=== PATIENT | female | born 1965 | race Caucasian/White ===

== ENCOUNTER 2020-04-04 10:44 | Inpatient (IN) | payer BC, OTHER ==
[2020-04-04] MEDS ORDERED: Labetalol HCl 100 MG/20 ML VIAL ONE (11:04)
[2020-04-04 11:29] LABS: #Eosinphils 0.2 thou/uL (0.0-0.7); #Lymphocytes 1.1 thou/uL (1.20-3.40); #Monocytes 0.5 thou/uL (0.11-0.59); #Neutrophils 7.1 thou/uL (1.40-6.50); %Basophils 0.5 % (0.0-1.0); %Eosinophils 2.1 % (0.0-10.0); %Lymphocytes 12.3 % (21.0-51.0); %Neutrophils 79.2 % (42.0-75.0); Hemoglobin 10.5 g/dL (12.0-16.0); Mean Corpuscular HGB CONC 34.2 g/dL (32.0-36.0); Mean Corpuscular Volume 84.8 fL (78.0-98.0); Mean Platelet Volume 7.4 fL (7.4-10.4); Platelet Count 246 thou/uL (130-400); RBC Distribution Width 13.4 % (11.5-14.5); Red Blood Cell (RBC) Count 3.63 mill/uL (4.20-5.40)
[2020-04-04 11:50] LABS: ALT (SGPT) 7 U/L (8-55); AST (SGOT) 13 U/L (5-34); Albumin 4.2 g/dL (3.5-5.0); Alkaline Phosphatase 83 U/L (40-110); Anion Gap 18 mmol/L (10-20); BUN (Urea Nitrogen) 35 mg/dL (9.8-20.1); Bilirubin, Total 0.5 mg/dL (0.2-1.2); Calc. Creatinine Clearance 0 mL/min (70-130); Calcium 8.7 mg/dL (7.8-10.44); Carbon Dioxide 21 mmol/L (22-29); Chloride 105 mmol/L (98-107); Globulin 2.7 g/dL (2.4-3.5); Glucose 112 mg/dL (70-105); Potassium 3.6 mmol/L (3.5-5.1); Protein, Total 6.9 g/dL (6.0-8.3); Sodium 140 mmol/L (136-145)
[2020-04-04] MEDS ORDERED: Acetaminophen 650 MG Suppository PR PRN (13:56)
[2020-04-04] MEDS ORDERED: Ondansetron PF 4 MG/2 ML Vial IVP PRN (13:56)
[2020-04-04] MEDS ORDERED: Calcium Carbonate 500 MG ChewTAB PO PRN (13:56)
[2020-04-04] MEDS ORDERED: Sodium Chloride 0.9% 1,000 ML IV SCH (14:15)
[2020-04-04 14:34] VITALS: BMI 22.1
[2020-04-04 16:05] LABS: Bilirubin Negative (Negative); Blood, Urine 1+ (Negative); Clarity Clear (Clear); Glucose, Urine (Dipstick) 50 mg/dL (Negative); Ketone, Urine Negative (Negative); Leukocyte 250 Leu/uL (Negative); Nitrite Negative (Negative); Protein, Urine (Dipstick) 300 mg/dL (Neg-Trace); RBC/HPF 0-3 HPF (0-3); Specific Gravity, Urine 1.016 (1.002-1.036); Squamous Epithelial 0-3 HPF (0-3); Urobilinogen Normal mg/dL (Less than 2)
[2020-04-04 16:06] LABS: Bacteria/HPF 1+ HPF (None Seen)
[2020-04-04] MEDS: Sodium Chloride 0.9% 1,000 ML IV SCH (17:12)
[2020-04-04] MEDS: hydrALAZINE 20 MG/ML VIAL SLOW IVP PRN (18:21)
[2020-04-04] MEDS: Ondansetron ODT 4 MG TAB PO PRN (19:17)
[2020-04-04] MEDS: Tacrolimus 1 MG CAP PO SCH (21:14)
[2020-04-05] MEDS: Sodium Chloride 0.9% 1,000 ML IV SCH (02:49)
[2020-04-05] MEDS: Acetaminophen 325 MG TAB PO PRN ×2 (05:34→13:51)
[2020-04-05] MEDS: hydrALAZINE 20 MG/ML VIAL SLOW IVP PRN ×3 (05:35→18:27)
[2020-04-05] MEDS: Labetalol HCl 100 MG/20 ML VIAL SLOW IVP PRN ×3 (06:42→23:31)
[2020-04-05 07:17] LABS: ALT (SGPT) Less than 7 U/L (8-55); AST (SGOT) 10 U/L (5-34); Albumin 3.7 g/dL (3.5-5.0); Alkaline Phosphatase 78 U/L (40-110); Anion Gap 16 mmol/L (10-20); BUN (Urea Nitrogen) 33 mg/dL (9.8-20.1); Bilirubin, Total 0.3 mg/dL (0.2-1.2); Calc. Creatinine Clearance 15 mL/min (70-130); Calcium 7.8 mg/dL (7.8-10.44); Carbon Dioxide 17 mmol/L (22-29); Chloride 111 mmol/L (98-107); Globulin 2.2 g/dL (2.4-3.5); Glucose 122 mg/dL (70-105); Potassium 3.2 mmol/L (3.5-5.1); Protein, Total 5.9 g/dL (6.0-8.3); Sodium 141 mmol/L (136-145)
[2020-04-05 08:04] LABS: Band 2 % (5-11); Eosinophils 1 % (0-10); Hemoglobin 9.8 g/dL (12.0-16.0); Lymphocytes 14 % (21-51); MDiff Complete? YES; Mean Corpuscular HGB CONC 35.1 g/dL (32.0-36.0); Mean Corpuscular Volume 85.5 fL (78.0-98.0); Mean Platelet Volume 7.6 fL (7.4-10.4); Monocytes 3 % (0-10); Myelocyte 1 % (0-0); Neutrophil 77 % (42-75); Platelet Count 238 thou/uL (130-400); Platelet Morphology Comment Appears Adequate; Polychromasia SLIGHT = 2-3 cells (100X) (0-2/hpf); RBC Distribution Width 13.6 % (11.5-14.5); Reactive Lymphocytes 1 % (0-10); Red Blood Cell (RBC) Count 3.27 mill/uL (4.20-5.40); White Blood Cell (WBC) Count 9.4 thou/uL (4.8-10.8)
[2020-04-05] MEDS: Enoxaparin Sodium 30 MG/0.3 ML SYRINGE SC SCH (08:43)
[2020-04-05] MEDS ORDERED: Potassium Chloride 20 MEQ TAB PO SCH (09:15)
[2020-04-05] MEDS ORDERED: Morphine 4 MG/ML VIAL SLOW IVP PRN (10:01)
[2020-04-05] MEDS ORDERED: Ondansetron PF 4 MG/2 ML Vial IVP SCH (10:30)
[2020-04-05] MEDS ORDERED: Morphine 4 MG/ML VIAL SLOW IVP SCH (10:30)
[2020-04-05] MEDS: Lactated Ringer's 1,000 ML IV SCH ×2 (10:35→20:20)
[2020-04-05] MEDS: Ondansetron PF 4 MG/2 ML Vial IVP SCH ×2 (13:04→17:14)
[2020-04-05] MEDS: predniSONE 5 MG TAB PO SCH (13:51)
[2020-04-05] MEDS: Tacrolimus 1 MG CAP PO SCH ×2 (13:55→20:18)
[2020-04-05] MEDS: Ondansetron ODT 4 MG TAB PO PRN (20:27)
[2020-04-05] MEDS ORDERED: Mycophenolate 250 MG CAP PO SCH (21:00)
[2020-04-06] MEDS: Ondansetron PF 4 MG/2 ML Vial IVP SCH ×5 (02:02→23:05)
[2020-04-06] MEDS: Labetalol HCl 100 MG/20 ML VIAL SLOW IVP PRN (05:04)
[2020-04-06] MEDS: Morphine 2 MG/ML VIAL SLOW IVP PRN ×2 (05:04→23:20)
[2020-04-06] MEDS: Lactated Ringer's 1,000 ML IV SCH ×2 (05:08→15:00)
[2020-04-06 06:57] LABS: ALT (SGPT) 8 U/L (8-55); AST (SGOT) 17 U/L (5-34); Albumin 3.2 g/dL (3.5-5.0); Alkaline Phosphatase 57 U/L (40-110); Anion Gap 14 mmol/L (10-20); BUN (Urea Nitrogen) 31 mg/dL (9.8-20.1); Bilirubin, Total 0.2 mg/dL (0.2-1.2); Calc. Creatinine Clearance 14 mL/min (70-130); Calcium 7.8 mg/dL (7.8-10.44); Carbon Dioxide 18 mmol/L (22-29); Chloride 112 mmol/L (98-107); Globulin 2.2 g/dL (2.4-3.5); Glucose 106 mg/dL (70-105); Potassium 4.6 mmol/L (3.5-5.1); Protein, Total 5.4 g/dL (6.0-8.3); Sodium 139 mmol/L (136-145)
[2020-04-06 07:35] LABS: #Basophils 0.1 thou/uL (0.0-0.2); #Eosinphils 0.1 thou/uL (0.0-0.7); #Lymphocytes 1.9 thou/uL (1.20-3.40); #Monocytes 0.7 thou/uL (0.11-0.59); #Neutrophils 6.9 thou/uL (1.40-6.50); %Basophils 0.7 % (0.0-1.0); %Eosinophils 0.8 % (0.0-10.0); %Lymphocytes 19.8 % (21.0-51.0); %Monocytes 7.5 % (0.0-10.0); %Neutrophils 71.3 % (42.0-75.0); Mean Corpuscular HGB CONC 32.7 g/dL (32.0-36.0); Mean Corpuscular Hemoglobin 28.3 pg (27.0-31.0); Mean Corpuscular Volume 86.6 fL (78.0-98.0); Mean Platelet Volume 7.8 fL (7.4-10.4); Platelet Count 223 thou/uL (130-400); RBC Distribution Width 14.1 % (11.5-14.5); Red Blood Cell (RBC) Count 2.81 mill/uL (4.20-5.40); White Blood Cell (WBC) Count 9.6 thou/uL (4.8-10.8)
[2020-04-06] MEDS: Enoxaparin Sodium 30 MG/0.3 ML SYRINGE SC SCH (08:14)
[2020-04-06] MEDS ORDERED: Amlodipine 5 MG TAB PO SCH (09:00)
[2020-04-06] MEDS: Tacrolimus 1 MG CAP PO SCH ×2 (10:08→21:06)
[2020-04-06] MEDS: predniSONE 5 MG TAB PO SCH (10:09)
[2020-04-06] MEDS ORDERED: Epoetin (ESRD) 20,000 UNITS/ML SC SCH (11:15)
[2020-04-06] MEDS ORDERED: Ferrous Sulfate 325 MG TAB PO SCH (12:15)
[2020-04-06] MEDS ORDERED: Mycophenolate 250 MG CAP PO SCH (12:15)
[2020-04-06] MEDS ORDERED: predniSONE 5 MG TAB PO SCH (12:15)
[2020-04-06 12:22] LABS: PTT 29.1 sec (22.9-36.1); Prothrombin Time 13.7 sec (12.0-14.7)
[2020-04-06] MEDS ORDERED: Famotidine 20 MG TAB PO SCH (12:30)
[2020-04-06] MEDS: EPOETIN ALFA-EPBX (ESRD) 4,000 UNIT/ML VIAL SC SCH (13:09)
[2020-04-06] MEDS: hydrALAZINE 20 MG/ML VIAL SLOW IVP PRN (19:50)
[2020-04-06] MEDS: Mycophenolate 250 MG CAP PO SCH (21:19)
[2020-04-06] MEDS: Acetaminophen 325 MG TAB PO PRN (21:24)
[2020-04-07] MEDS: hydrALAZINE 20 MG/ML VIAL SLOW IVP PRN ×2 (01:00→12:24)
[2020-04-07] MEDS: Acetaminophen 325 MG TAB PO PRN (01:02)
[2020-04-07] MEDS: Lactated Ringer's 1,000 ML IV SCH ×3 (02:32→23:24)
[2020-04-07] MEDS: Labetalol HCl 100 MG/20 ML VIAL SLOW IVP PRN ×3 (02:52→23:32)
[2020-04-07] MEDS ORDERED: Morphine 2 MG/ML VIAL SLOW IVP SCH (03:15)
[2020-04-07] MEDS: Ondansetron PF 4 MG/2 ML Vial IVP SCH ×4 (05:21→23:24)
[2020-04-07 05:43] LABS: #Basophils 0.1 thou/uL (0.0-0.2); #Eosinphils 0.2 thou/uL (0.0-0.7); #Lymphocytes 1.3 thou/uL (1.20-3.40); #Monocytes 0.8 thou/uL (0.11-0.59); #Neutrophils 10.2 thou/uL (1.40-6.50); %Basophils 0.5 % (0.0-1.0); %Eosinophils 1.3 % (0.0-10.0); %Lymphocytes 10.3 % (21.0-51.0); %Monocytes 6.2 % (0.0-10.0); %Neutrophils 81.8 % (42.0-75.0); Hemoglobin 8.4 g/dL (12.0-16.0); Mean Corpuscular HGB CONC 32.1 g/dL (32.0-36.0); Mean Corpuscular Hemoglobin 28.3 pg (27.0-31.0); Mean Corpuscular Volume 88.2 fL (78.0-98.0); Mean Platelet Volume 7.9 fL (7.4-10.4); Platelet Count 217 thou/uL (130-400); RBC Distribution Width 14.1 % (11.5-14.5); Red Blood Cell (RBC) Count 2.96 mill/uL (4.20-5.40); White Blood Cell (WBC) Count 12.4 thou/uL (4.8-10.8)
[2020-04-07 06:01] LABS: Anion Gap 16 mmol/L (10-20); BUN (Urea Nitrogen) 31 mg/dL (9.8-20.1); Calc. Creatinine Clearance 15 mL/min (70-130); Calcium 7.8 mg/dL (7.8-10.44); Carbon Dioxide 14 mmol/L (22-29); Chloride 110 mmol/L (98-107); Glucose 108 mg/dL (70-105); Sodium 136 mmol/L (136-145)
[2020-04-07] MEDS: Enoxaparin Sodium 30 MG/0.3 ML SYRINGE SC SCH (08:53)
[2020-04-07] MEDS: Tacrolimus 1 MG CAP PO SCH ×2 (08:55→20:36)
[2020-04-07] MEDS: predniSONE 5 MG TAB PO SCH (08:55)
[2020-04-07] MEDS: Ferrous Sulfate 325 MG TAB PO SCH (08:56)
[2020-04-07] MEDS: Calcitriol 0.25 MCG CAP PO SCH (08:56)
[2020-04-07] MEDS: Famotidine 20 MG TAB PO SCH (08:57)
[2020-04-07] MEDS: Mycophenolate 250 MG CAP PO SCH ×2 (08:57→20:36)
[2020-04-07] MEDS ORDERED: Amlodipine 10 MG TAB PO SCH (09:00)
[2020-04-07] MEDS ORDERED: Labetalol 100 MG TAB PO SCH (14:15)
[2020-04-07] MEDS ORDERED: hydrALAZINE 25 MG TAB PO SCH ×2 (15:00)
[2020-04-07] MEDS ORDERED: hydrALAZINE 25 MG TAB PO PRN (16:56)
[2020-04-07] MEDS ORDERED: Labetalol 100 MG TAB PO PRN (16:56)
[2020-04-07] MEDS: Labetalol 100 MG TAB PO SCH (20:36)
[2020-04-07] MEDS ORDERED: Metoprolol Tartrate 25 MG TAB PO SCH (21:00)
[2020-04-08] MEDS: Ondansetron PF 4 MG/2 ML Vial IVP SCH ×3 (05:19→17:06)
[2020-04-08] MEDS: Acetaminophen 325 MG TAB PO PRN (05:31)
[2020-04-08 08:07] LABS: #Eosinphils 0.1 thou/uL (0.0-0.7); #Lymphocytes 1.3 thou/uL (1.20-3.40); #Monocytes 0.8 thou/uL (0.11-0.59); #Neutrophils 7.2 thou/uL (1.40-6.50); %Basophils 0.4 % (0.0-1.0); %Eosinophils 0.7 % (0.0-10.0); %Lymphocytes 14.1 % (21.0-51.0); %Monocytes 8.2 % (0.0-10.0); %Neutrophils 76.6 % (42.0-75.0); Hemoglobin 8.1 g/dL (12.0-16.0); Mean Corpuscular HGB CONC 33.6 g/dL (32.0-36.0); Mean Corpuscular Hemoglobin 29.6 pg (27.0-31.0); Mean Platelet Volume 7.5 fL (7.4-10.4); Platelet Count 223 thou/uL (130-400); RBC Distribution Width 13.9 % (11.5-14.5); Red Blood Cell (RBC) Count 2.74 mill/uL (4.20-5.40); White Blood Cell (WBC) Count 9.4 thou/uL (4.8-10.8)
[2020-04-08 08:31] LABS: Anion Gap 14 mmol/L (10-20); BUN (Urea Nitrogen) 33 mg/dL (9.8-20.1); Calc. Creatinine Clearance 14 mL/min (70-130); Calcium 8.1 mg/dL (7.8-10.44); Carbon Dioxide 19 mmol/L (22-29); Chloride 108 mmol/L (98-107); Glucose 99 mg/dL (70-105); Potassium 3.7 mmol/L (3.5-5.1); Sodium 137 mmol/L (136-145)
[2020-04-08] MEDS: Lactated Ringer's 1,000 ML IV SCH ×2 (08:46→10:09)
[2020-04-08] MEDS: Calcitriol 0.25 MCG CAP PO SCH (10:00)
[2020-04-08] MEDS: Tacrolimus 1 MG CAP PO SCH ×2 (10:00→20:22)
[2020-04-08] MEDS: Enoxaparin Sodium 30 MG/0.3 ML SYRINGE SC SCH (10:00)
[2020-04-08] MEDS: NIFEdipine XL 60 MG TAB PO SCH (10:00)
[2020-04-08] MEDS: hydrALAZINE 25 MG TAB PO SCH ×3 (10:00→20:22)
[2020-04-08] MEDS: Mycophenolate 250 MG CAP PO SCH ×2 (10:00→20:22)
[2020-04-08] MEDS: Labetalol 100 MG TAB PO SCH ×4 (10:00→21:00)
[2020-04-08] MEDS: Famotidine 20 MG TAB PO SCH (10:00)
[2020-04-08] MEDS: Ferrous Sulfate 325 MG TAB PO SCH (10:03)
[2020-04-08] MEDS: predniSONE 5 MG TAB PO SCH (10:03)
[2020-04-08] MEDS ORDERED: Furosemide 40 MG/4 ML VIAL SLOW IVP SCH (16:30)
[2020-04-08] MEDS: cloNIDine 0.1mg/24 Hour PATCH TD SCH (17:59)
[2020-04-09] MEDS: Ondansetron PF 4 MG/2 ML Vial IVP SCH ×5 (00:26→18:34)
[2020-04-09 07:23] LABS: #Lymphocytes 1.3 thou/uL (1.20-3.40); #Monocytes 0.8 thou/uL (0.11-0.59); #Neutrophils 7.3 thou/uL (1.40-6.50); %Basophils 0.1 % (0.0-1.0); %Eosinophils 0.4 % (0.0-10.0); %Lymphocytes 14.1 % (21.0-51.0); %Monocytes 7.9 % (0.0-10.0); %Neutrophils 77.6 % (42.0-75.0); Hemoglobin 8.7 g/dL (12.0-16.0); Mean Corpuscular HGB CONC 32.6 g/dL (32.0-36.0); Mean Corpuscular Hemoglobin 28.7 pg (27.0-31.0); Platelet Count 276 thou/uL (130-400); RBC Distribution Width 14.1 % (11.5-14.5); Red Blood Cell (RBC) Count 3.05 mill/uL (4.20-5.40); White Blood Cell (WBC) Count 9.5 thou/uL (4.8-10.8)
[2020-04-09 07:44] LABS: Anion Gap 15 mmol/L (10-20); BUN (Urea Nitrogen) 43 mg/dL (9.8-20.1); Calc. Creatinine Clearance 13 mL/min (70-130); Calcium 8.2 mg/dL (7.8-10.44); Carbon Dioxide 22 mmol/L (22-29); Chloride 106 mmol/L (98-107); Glucose 99 mg/dL (70-105); Potassium 4.2 mmol/L (3.5-5.1); Sodium 139 mmol/L (136-145)
[2020-04-09] MEDS: hydrALAZINE 25 MG TAB PO SCH ×4 (08:06→20:36)
[2020-04-09] MEDS ORDERED: Sodium Chloride 0.65% Nasal 44 ML BOT EA NARE PRN (08:29)
[2020-04-09] MEDS ORDERED: HYDROcodone/Acetaminophen 5/325 mg Tablet PO PRN (08:29)
[2020-04-09] MEDS ORDERED: Benzonatate 100 MG CAP PO PRN (08:29)
[2020-04-09] MEDS ORDERED: Cepastat Lozenges 1 LOZ PO PRN (08:29)
[2020-04-09] MEDS ORDERED: Loratadine 10 MG TAB PO PRN (08:29)
[2020-04-09] MEDS ORDERED: GUAIFENESIN SF SOLN 200 MG/10 ML UDCUP PO PRN (08:29)
[2020-04-09] MEDS ORDERED: Loperamide HCl 2 MG CAP PO PRN (08:29)
[2020-04-09] MEDS: Famotidine 20 MG TAB PO SCH (10:17)
[2020-04-09] MEDS: predniSONE 5 MG TAB PO SCH (10:17)
[2020-04-09] MEDS: Calcitriol 0.25 MCG CAP PO SCH (10:18)
[2020-04-09] MEDS: Ferrous Sulfate 325 MG TAB PO SCH (10:18)
[2020-04-09] MEDS: Labetalol 100 MG TAB PO SCH ×2 (10:19→20:37)
[2020-04-09] MEDS: NIFEdipine XL 60 MG TAB PO SCH (10:20)
[2020-04-09] MEDS: Mycophenolate 250 MG CAP PO SCH ×2 (10:20→20:36)
[2020-04-09] MEDS: Tacrolimus 1 MG CAP PO SCH ×2 (10:20→20:38)
[2020-04-09] MEDS: Enoxaparin Sodium 30 MG/0.3 ML SYRINGE SC SCH (10:21)
[2020-04-09 11:25] LABS: PTT 24.7 sec (22.9-36.1)
[2020-04-09 11:26] LABS: Prothrombin Time 13.5 sec (12.0-14.7)
[2020-04-10] MEDS: Ondansetron PF 4 MG/2 ML Vial IVP SCH ×4 (00:55→18:15)
[2020-04-10 05:56] LABS: #Eosinphils 0.1 thou/uL (0.0-0.7); #Lymphocytes 1.2 thou/uL (1.20-3.40); #Monocytes 0.8 thou/uL (0.11-0.59); #Neutrophils 7.1 thou/uL (1.40-6.50); %Basophils 0.1 % (0.0-1.0); %Eosinophils 0.6 % (0.0-10.0); %Lymphocytes 13.1 % (21.0-51.0); %Monocytes 8.5 % (0.0-10.0); %Neutrophils 77.8 % (42.0-75.0); Hemoglobin 8.1 g/dL (12.0-16.0); Mean Corpuscular HGB CONC 32.5 g/dL (32.0-36.0); Mean Corpuscular Hemoglobin 28.6 pg (27.0-31.0); Mean Corpuscular Volume 88.1 fL (78.0-98.0); Mean Platelet Volume 7.5 fL (7.4-10.4); Platelet Count 304 thou/uL (130-400); RBC Distribution Width 14.1 % (11.5-14.5); Red Blood Cell (RBC) Count 2.84 mill/uL (4.20-5.40); White Blood Cell (WBC) Count 9.1 thou/uL (4.8-10.8)
[2020-04-10 06:13] LABS: ALT (SGPT) 11 U/L (8-55); AST (SGOT) 10 U/L (5-34); Albumin 3.1 g/dL (3.5-5.0); Alkaline Phosphatase 66 U/L (40-110); Anion Gap 15 mmol/L (10-20); BUN (Urea Nitrogen) 49 mg/dL (9.8-20.1); Bilirubin, Total 0.2 mg/dL (0.2-1.2); Calc. Creatinine Clearance 12 mL/min (70-130); Calcium 7.9 mg/dL (7.8-10.44); Carbon Dioxide 23 mmol/L (22-29); Chloride 106 mmol/L (98-107); Glucose 124 mg/dL (70-105); Protein, Total 5.1 g/dL (6.0-8.3); Sodium 140 mmol/L (136-145)
[2020-04-10] MEDS: Ferrous Sulfate 325 MG TAB PO SCH (08:24)
[2020-04-10] MEDS: predniSONE 5 MG TAB PO SCH (08:25)
[2020-04-10] MEDS: Tacrolimus 1 MG CAP PO SCH ×2 (10:00→20:19)
[2020-04-10] MEDS: NIFEdipine XL 60 MG TAB PO SCH (10:02)
[2020-04-10] MEDS: Mycophenolate 250 MG CAP PO SCH ×2 (10:03→20:18)
[2020-04-10] MEDS: hydrALAZINE 25 MG TAB PO SCH ×3 (10:04→20:14)
[2020-04-10] MEDS: Labetalol 100 MG TAB PO SCH ×2 (10:04→20:17)
[2020-04-10] MEDS: Famotidine 20 MG TAB PO SCH (10:04)
[2020-04-10] MEDS: Enoxaparin Sodium 30 MG/0.3 ML SYRINGE SC SCH (10:05)
[2020-04-10] MEDS: Albumin 25% 25 GM/100 ML BOT IVPB SCH ×3 (10:11→22:20)
[2020-04-10] MEDS: Calcitriol 0.25 MCG CAP PO SCH (10:11)
[2020-04-10] MEDS ORDERED: Lactated Ringer's 1,000 ML IV SCH (16:15)
[2020-04-10 20:08] LABS: Bacteria/HPF None Seen HPF (None Seen); Bilirubin Negative (Negative); Blood, Urine Negative (Negative); Clarity Clear (Clear); Glucose, Urine (Dipstick) 50 mg/dL (Negative); Ketone, Urine Negative (Negative); Leukocyte 250 Leu/uL (Negative); Nitrite Negative (Negative); Protein, Urine (Dipstick) 100 mg/dL (Neg-Trace); RBC/HPF 0-3 HPF (0-3); Specific Gravity, Urine 1.012 (1.002-1.036); Squamous Epithelial 0-3 HPF (0-3); Urobilinogen Normal mg/dL (Less than 2); pH, Urine 6.5 (5.0-9.0)
[2020-04-10] MEDS ORDERED: Furosemide 40 MG/4 ML VIAL SLOW IVP SCH (20:15)
[2020-04-10 20:40] LABS: Creatinine, Urine 54.18 mg/dL (47-110)
[2020-04-11] MEDS: Ondansetron PF 4 MG/2 ML Vial IVP SCH ×5 (00:50→23:38)
[2020-04-11] MEDS: Albumin 25% 25 GM/100 ML BOT IVPB SCH ×4 (05:00→23:38)
[2020-04-11 07:25] LABS: Anion Gap 16 mmol/L (10-20); BUN (Urea Nitrogen) 53 mg/dL (9.8-20.1); Calc. Creatinine Clearance 13 mL/min (70-130); Calcium 8.7 mg/dL (7.8-10.44); Carbon Dioxide 24 mmol/L (22-29); Chloride 104 mmol/L (98-107); Glucose 106 mg/dL (70-105); Sodium 140 mmol/L (136-145)
[2020-04-11 07:52] LABS: #Lymphocytes 1.2 thou/uL (1.20-3.40); #Monocytes 0.6 thou/uL (0.11-0.59); #Neutrophils 6.5 thou/uL (1.40-6.50); %Basophils 0.1 % (0.0-1.0); %Eosinophils 0.3 % (0.0-10.0); %Lymphocytes 14.5 % (21.0-51.0); %Monocytes 7.5 % (0.0-10.0); %Neutrophils 77.5 % (42.0-75.0); Mean Corpuscular HGB CONC 32.3 g/dL (32.0-36.0); Mean Corpuscular Hemoglobin 28.5 pg (27.0-31.0); Mean Corpuscular Volume 88.3 fL (78.0-98.0); Mean Platelet Volume 7.7 fL (7.4-10.4); Platelet Count 322 thou/uL (130-400); Red Blood Cell (RBC) Count 2.79 mill/uL (4.20-5.40); White Blood Cell (WBC) Count 8.4 thou/uL (4.8-10.8)
[2020-04-11] MEDS: Mycophenolate 250 MG CAP PO SCH ×2 (07:54→19:52)
[2020-04-11] MEDS: Ferrous Sulfate 325 MG TAB PO SCH (07:55)
[2020-04-11] MEDS: Labetalol 100 MG TAB PO SCH ×2 (07:55→19:59)
[2020-04-11] MEDS: predniSONE 5 MG TAB PO SCH (07:55)
[2020-04-11] MEDS: Tacrolimus 1 MG CAP PO SCH ×2 (07:55→21:57)
[2020-04-11] MEDS: NIFEdipine XL 60 MG TAB PO SCH (07:56)
[2020-04-11] MEDS: hydrALAZINE 25 MG TAB PO SCH ×3 (07:56→19:51)
[2020-04-11] MEDS: Enoxaparin Sodium 30 MG/0.3 ML SYRINGE SC SCH (07:57)
[2020-04-11] MEDS: Calcitriol 0.25 MCG CAP PO SCH (07:57)
[2020-04-11] MEDS: Famotidine 20 MG TAB PO SCH (08:01)
[2020-04-12] MEDS: Ondansetron PF 4 MG/2 ML Vial IVP SCH ×4 (05:35→23:52)
[2020-04-12] MEDS: Albumin 25% 25 GM/100 ML BOT IVPB SCH (05:36)
[2020-04-12 06:49] LABS: #Lymphocytes 1.8 thou/uL (1.20-3.40); #Monocytes 0.6 thou/uL (0.11-0.59); #Neutrophils 5.7 thou/uL (1.40-6.50); %Basophils 0.6 % (0.0-1.0); %Eosinophils 0.6 % (0.0-10.0); %Lymphocytes 21.4 % (21.0-51.0); %Monocytes 7.9 % (0.0-10.0); %Neutrophils 69.6 % (42.0-75.0); Hemoglobin 7.8 g/dL (12.0-16.0); Mean Corpuscular HGB CONC 32.9 g/dL (32.0-36.0); Mean Corpuscular Hemoglobin 29.4 pg (27.0-31.0); Mean Corpuscular Volume 89.3 fL (78.0-98.0); Mean Platelet Volume 7.4 fL (7.4-10.4); Platelet Count 324 thou/uL (130-400); RBC Distribution Width 14.1 % (11.5-14.5); Red Blood Cell (RBC) Count 2.66 mill/uL (4.20-5.40); White Blood Cell (WBC) Count 8.2 thou/uL (4.8-10.8)
[2020-04-12 07:18] LABS: Anion Gap 20 mmol/L (10-20); BUN (Urea Nitrogen) 60 mg/dL (9.8-20.1); Calc. Creatinine Clearance 11 mL/min (70-130); Calcium 8.6 mg/dL (7.8-10.44); Carbon Dioxide 20 mmol/L (22-29); Chloride 104 mmol/L (98-107); Glucose 92 mg/dL (70-105); Sodium 140 mmol/L (136-145)
[2020-04-12] MEDS: Mycophenolate 250 MG CAP PO SCH ×2 (08:28→20:27)
[2020-04-12] MEDS: Labetalol 100 MG TAB PO SCH ×2 (08:29→20:27)
[2020-04-12] MEDS: Tacrolimus 1 MG CAP PO SCH ×2 (08:29→20:28)
[2020-04-12] MEDS: Famotidine 20 MG TAB PO SCH (08:29)
[2020-04-12] MEDS: Ferrous Sulfate 325 MG TAB PO SCH (08:29)
[2020-04-12] MEDS: NIFEdipine XL 60 MG TAB PO SCH (08:29)
[2020-04-12] MEDS: predniSONE 5 MG TAB PO SCH (08:30)
[2020-04-12] MEDS: hydrALAZINE 25 MG TAB PO SCH ×3 (08:30→20:28)
[2020-04-12] MEDS: Calcitriol 0.25 MCG CAP PO SCH (08:30)
[2020-04-12] MEDS: Enoxaparin Sodium 30 MG/0.3 ML SYRINGE SC SCH (08:31)
[2020-04-12] MEDS: Sodium Chloride 0.9% 1,000 ML IV SCH ×2 (10:50→23:52)
[2020-04-12 18:03] LABS: SARS-CoV-2 NAA Rapid Test Not Detected (NotDetected)
[2020-04-12] MEDS: Senokot S 8.6-50 MG TAB PO PRN (20:27)
[2020-04-12] MEDS: Bisacodyl 5 MG TAB PO PRN (20:27)
[2020-04-13] MEDS: Ondansetron PF 4 MG/2 ML Vial IVP SCH ×4 (05:54→23:30)
[2020-04-13] MEDS: Bisacodyl 5 MG TAB PO PRN (05:54)
[2020-04-13 05:58] LABS: #Lymphocytes 1.3 thou/uL (1.20-3.40); #Monocytes 0.9 thou/uL (0.11-0.59); #Neutrophils 7.3 thou/uL (1.40-6.50); %Basophils 0.1 % (0.0-1.0); %Eosinophils 0.3 % (0.0-10.0); %Lymphocytes 13.8 % (21.0-51.0); %Monocytes 9.2 % (0.0-10.0); %Neutrophils 76.6 % (42.0-75.0); Mean Corpuscular HGB CONC 31.9 g/dL (32.0-36.0); Mean Corpuscular Hemoglobin 28.5 pg (27.0-31.0); Mean Corpuscular Volume 89.2 fL (78.0-98.0); Mean Platelet Volume 7.3 fL (7.4-10.4); Platelet Count 339 thou/uL (130-400); RBC Distribution Width 14.3 % (11.5-14.5); Red Blood Cell (RBC) Count 2.81 mill/uL (4.20-5.40); White Blood Cell (WBC) Count 9.6 thou/uL (4.8-10.8)
[2020-04-13 06:13] LABS: Anion Gap 20 mmol/L (10-20); BUN (Urea Nitrogen) 63 mg/dL (9.8-20.1); Calc. Creatinine Clearance 12 mL/min (70-130); Calcium 8.6 mg/dL (7.8-10.44); Carbon Dioxide 17 mmol/L (22-29); Chloride 107 mmol/L (98-107); Glucose 99 mg/dL (70-105); Potassium 4.1 mmol/L (3.5-5.1); Sodium 140 mmol/L (136-145)
[2020-04-13] MEDS ORDERED: Magnesium Citrate 300 ML BOT PO SCH (08:15)
[2020-04-13] MEDS ORDERED: Bisacodyl 10 MG SUPP PR SCH (08:15)
[2020-04-13] MEDS: NIFEdipine XL 60 MG TAB PO SCH (08:40)
[2020-04-13] MEDS: Tacrolimus 1 MG CAP PO SCH ×2 (08:41→21:03)
[2020-04-13] MEDS: Famotidine 20 MG TAB PO SCH (08:41)
[2020-04-13] MEDS: Enoxaparin Sodium 30 MG/0.3 ML SYRINGE SC SCH (08:42)
[2020-04-13] MEDS: Ferrous Sulfate 325 MG TAB PO SCH (08:42)
[2020-04-13] MEDS: hydrALAZINE 25 MG TAB PO SCH ×3 (08:42→21:00)
[2020-04-13] MEDS: Calcitriol 0.25 MCG CAP PO SCH (08:42)
[2020-04-13] MEDS: predniSONE 5 MG TAB PO SCH (08:42)
[2020-04-13] MEDS: Labetalol 100 MG TAB PO SCH ×2 (08:53→21:00)
[2020-04-13] MEDS: Mycophenolate 250 MG CAP PO SCH ×2 (08:53→21:00)
[2020-04-13] MEDS: Sodium Chloride 0.9% 1,000 ML IV SCH (12:23)
[2020-04-13] MEDS: EPOETIN ALFA-EPBX (ESRD) 4,000 UNIT/ML VIAL SC SCH (14:02)
[2020-04-14] MEDS: Sodium Chloride 0.9% 1,000 ML IV SCH ×3 (01:38→13:48)
[2020-04-14 05:33] LABS: #Lymphocytes 0.7 thou/uL (1.20-3.40); #Monocytes 0.4 thou/uL (0.11-0.59); #Neutrophils 6.4 thou/uL (1.40-6.50); %Eosinophils 0.3 % (0.0-10.0); %Lymphocytes 9.6 % (21.0-51.0); %Monocytes 5.6 % (0.0-10.0); %Neutrophils 84.4 % (42.0-75.0); Hemoglobin 7.8 g/dL (12.0-16.0); Mean Corpuscular HGB CONC 32.5 g/dL (32.0-36.0); Mean Corpuscular Hemoglobin 28.9 pg (27.0-31.0); Mean Corpuscular Volume 89.1 fL (78.0-98.0); Mean Platelet Volume 7.3 fL (7.4-10.4); Platelet Count 330 thou/uL (130-400); RBC Distribution Width 14.1 % (11.5-14.5); Red Blood Cell (RBC) Count 2.69 mill/uL (4.20-5.40); White Blood Cell (WBC) Count 7.6 thou/uL (4.8-10.8)
[2020-04-14 05:57] LABS: Anion Gap 19 mmol/L (10-20); BUN (Urea Nitrogen) 63 mg/dL (9.8-20.1); Calc. Creatinine Clearance 13 mL/min (70-130); Calcium 8.3 mg/dL (7.8-10.44); Carbon Dioxide 17 mmol/L (22-29); Chloride 108 mmol/L (98-107); Glucose 108 mg/dL (70-105); Potassium 4.4 mmol/L (3.5-5.1); Sodium 140 mmol/L (136-145)
[2020-04-14] MEDS: Ondansetron PF 4 MG/2 ML Vial IVP SCH ×3 (06:07→17:21)
[2020-04-14] MEDS: Mycophenolate 250 MG CAP PO SCH ×2 (08:23→21:50)
[2020-04-14] MEDS: predniSONE 5 MG TAB PO SCH (08:24)
[2020-04-14] MEDS: Ferrous Sulfate 325 MG TAB PO SCH (08:24)
[2020-04-14] MEDS: Labetalol 100 MG TAB PO SCH ×2 (08:24→21:51)
[2020-04-14] MEDS: NIFEdipine XL 60 MG TAB PO SCH (08:24)
[2020-04-14] MEDS: Tacrolimus 1 MG CAP PO SCH ×2 (08:24→21:49)
[2020-04-14] MEDS: Calcitriol 0.25 MCG CAP PO SCH (08:25)
[2020-04-14] MEDS: Famotidine 20 MG TAB PO SCH (08:25)
[2020-04-14] MEDS: hydrALAZINE 25 MG TAB PO SCH ×3 (08:25→21:52)
[2020-04-14] MEDS: Enoxaparin Sodium 30 MG/0.3 ML SYRINGE SC SCH (08:29)
[2020-04-14] MEDS ORDERED: cloNIDine 0.1mg/24 Hour PATCH TD SCH (09:00)
[2020-04-14] MEDS: Sodium Bicarbonate Tab 325 MG TAB PO SCH ×2 (13:47→21:49)
[2020-04-15] MEDS: Ondansetron PF 4 MG/2 ML Vial IVP SCH ×5 (00:42→23:58)
[2020-04-15] MEDS: Sodium Chloride 0.9% 1,000 ML IV SCH ×3 (04:34→16:35)
[2020-04-15 06:50] LABS: #Eosinphils 0.1 thou/uL (0.0-0.7); #Lymphocytes 1.4 thou/uL (1.20-3.40); #Neutrophils 7.6 thou/uL (1.40-6.50); %Eosinophils 0.6 % (0.0-10.0); %Lymphocytes 13.9 % (21.0-51.0); %Monocytes 9.5 % (0.0-10.0); %Neutrophils 75.9 % (42.0-75.0); Hemoglobin 8.3 g/dL (12.0-16.0); Mean Corpuscular HGB CONC 32.6 g/dL (32.0-36.0); Mean Corpuscular Hemoglobin 29.1 pg (27.0-31.0); Mean Corpuscular Volume 89.5 fL (78.0-98.0); Mean Platelet Volume 7.2 fL (7.4-10.4); Platelet Count 356 thou/uL (130-400); RBC Distribution Width 14.4 % (11.5-14.5); Red Blood Cell (RBC) Count 2.84 mill/uL (4.20-5.40)
[2020-04-15 07:10] LABS: Anion Gap 17 mmol/L (10-20); BUN (Urea Nitrogen) 61 mg/dL (9.8-20.1); Calc. Creatinine Clearance 13 mL/min (70-130); Calcium 8.4 mg/dL (7.8-10.44); Carbon Dioxide 16 mmol/L (22-29); Chloride 112 mmol/L (98-107); Glucose 105 mg/dL (70-105); Potassium 3.9 mmol/L (3.5-5.1); Sodium 141 mmol/L (136-145)
[2020-04-15] MEDS: Famotidine 20 MG TAB PO SCH (08:07)
[2020-04-15] MEDS: Sodium Bicarbonate Tab 325 MG TAB PO SCH ×3 (08:07→20:56)
[2020-04-15] MEDS: NIFEdipine XL 60 MG TAB PO SCH (08:07)
[2020-04-15] MEDS: Tacrolimus 1 MG CAP PO SCH ×2 (08:08→20:54)
[2020-04-15] MEDS: predniSONE 5 MG TAB PO SCH (08:08)
[2020-04-15] MEDS: Labetalol 100 MG TAB PO SCH ×2 (08:08→20:54)
[2020-04-15] MEDS: Mycophenolate 250 MG CAP PO SCH ×2 (08:08→20:54)
[2020-04-15] MEDS: Calcitriol 0.25 MCG CAP PO SCH (08:09)
[2020-04-15] MEDS: Enoxaparin Sodium 30 MG/0.3 ML SYRINGE SC SCH (08:09)
[2020-04-15] MEDS: hydrALAZINE 25 MG TAB PO SCH ×3 (08:09→20:55)
[2020-04-15] MEDS: Ferrous Sulfate 325 MG TAB PO SCH (08:09)
[2020-04-15] MEDS: Benzonatate 100 MG CAP PO SCH ×2 (15:22→20:55)
[2020-04-15] MEDS: cloNIDine 0.1mg/24 Hour PATCH TD SCH (16:49)
[2020-04-16] MEDS: Ondansetron PF 4 MG/2 ML Vial IVP SCH ×3 (05:13→19:16)
[2020-04-16] MEDS: Sodium Chloride 0.9% 1,000 ML IV SCH ×2 (05:50→19:59)
[2020-04-16] MEDS: Ferrous Sulfate 325 MG TAB PO SCH (08:28)
[2020-04-16] MEDS: predniSONE 5 MG TAB PO SCH (08:28)
[2020-04-16] MEDS: Famotidine 20 MG TAB PO SCH (08:29)
[2020-04-16] MEDS: Enoxaparin Sodium 30 MG/0.3 ML SYRINGE SC SCH (08:29)
[2020-04-16] MEDS: Calcitriol 0.25 MCG CAP PO SCH (08:29)
[2020-04-16] MEDS: Mycophenolate 250 MG CAP PO SCH ×2 (08:30→20:20)
[2020-04-16] MEDS: Labetalol 100 MG TAB PO SCH ×2 (08:30→20:20)
[2020-04-16] MEDS: hydrALAZINE 25 MG TAB PO SCH ×3 (08:30→20:21)
[2020-04-16] MEDS: Benzonatate 100 MG CAP PO SCH ×3 (08:30→20:21)
[2020-04-16] MEDS: Sodium Bicarbonate Tab 325 MG TAB PO SCH ×3 (08:31→20:21)
[2020-04-16] MEDS: NIFEdipine XL 60 MG TAB PO SCH (08:31)
[2020-04-16] MEDS: Tacrolimus 1 MG CAP PO SCH ×2 (09:44→20:20)
[2020-04-16 10:03] LABS: #Basophils 0.1 thou/uL (0.0-0.2); #Eosinphils 0.1 thou/uL (0.0-0.7); #Lymphocytes 2.1 thou/uL (1.20-3.40); #Monocytes 0.8 thou/uL (0.11-0.59); #Neutrophils 8.5 thou/uL (1.40-6.50); %Basophils 0.6 % (0.0-1.0); %Eosinophils 0.9 % (0.0-10.0); %Lymphocytes 17.7 % (21.0-51.0); %Monocytes 7.1 % (0.0-10.0); %Neutrophils 73.6 % (42.0-75.0); Hemoglobin 9.2 g/dL (12.0-16.0); Mean Corpuscular HGB CONC 32.5 g/dL (32.0-36.0); Mean Corpuscular Hemoglobin 29.4 pg (27.0-31.0); Mean Corpuscular Volume 90.6 fL (78.0-98.0); Mean Platelet Volume 6.8 fL (7.4-10.4); Platelet Count 404 thou/uL (130-400); RBC Distribution Width 14.6 % (11.5-14.5); Red Blood Cell (RBC) Count 3.14 mill/uL (4.20-5.40); White Blood Cell (WBC) Count 11.6 thou/uL (4.8-10.8)
[2020-04-16 10:20] LABS: Anion Gap 18 mmol/L (10-20); BUN (Urea Nitrogen) 56 mg/dL (9.8-20.1); Calc. Creatinine Clearance 15 mL/min (70-130); Calcium 8.6 mg/dL (7.8-10.44); Carbon Dioxide 15 mmol/L (22-29); Chloride 112 mmol/L (98-107); Glucose 134 mg/dL (70-105); INR-International Normal Ratio 1.1; PTT 25.8 sec (22.9-36.1); Potassium 3.5 mmol/L (3.5-5.1); Prothrombin Time 14.5 sec (12.0-14.7); Sodium 141 mmol/L (136-145)
[2020-04-16 15:49] LABS: RBC Count-Automated (BF) 10 /cu.mm; WBC/Nucleated-Auto (BF) 31 uL
[2020-04-16 16:02] LABS: BF Color Yellow; Body Fluid Source Pleural Fluid; Clarity Clear (Clear); Tube # EDTA
[2020-04-16 16:06] LABS: Pleural Fluid, Amylase Less than 30 U/L (Not Available); Pleural Fluid, Glucose 120 mg/dL; Pleural Fluid, LDH 110 U/L (Not Available); Pleural Fluid, Protein 1.9 g/dL
[2020-04-16 16:11] LABS: BF Segmented Neutrophils 8 %; Cell Count Non Hematic 42 %; Lymphocytes 50 %
[2020-04-17] MEDS: Ondansetron PF 4 MG/2 ML Vial IVP SCH ×5 (00:37→23:25)
[2020-04-17] MEDS: Senokot S 8.6-50 MG TAB PO PRN ×2 (06:04→20:55)
[2020-04-17 06:06] LABS: #Eosinphils 0.1 thou/uL (0.0-0.7); #Lymphocytes 1.4 thou/uL (1.20-3.40); #Neutrophils 7.3 thou/uL (1.40-6.50); %Basophils 0.5 % (0.0-1.0); %Eosinophils 0.6 % (0.0-10.0); %Lymphocytes 14.3 % (21.0-51.0); %Monocytes 10.1 % (0.0-10.0); %Neutrophils 74.5 % (42.0-75.0); Hemoglobin 8.5 g/dL (12.0-16.0); Mean Corpuscular HGB CONC 31.9 g/dL (32.0-36.0); Mean Corpuscular Hemoglobin 28.5 pg (27.0-31.0); Mean Corpuscular Volume 89.2 fL (78.0-98.0); Mean Platelet Volume 6.7 fL (7.4-10.4); Platelet Count 352 thou/uL (130-400); RBC Distribution Width 14.5 % (11.5-14.5); White Blood Cell (WBC) Count 9.7 thou/uL (4.8-10.8)
[2020-04-17 06:24] LABS: Anion Gap 16 mmol/L (10-20); BUN (Urea Nitrogen) 53 mg/dL (9.8-20.1); Calc. Creatinine Clearance 16 mL/min (70-130); Calcium 8.3 mg/dL (7.8-10.44); Carbon Dioxide 17 mmol/L (22-29); Chloride 112 mmol/L (98-107); Glucose 98 mg/dL (70-105); Potassium 3.9 mmol/L (3.5-5.1); Sodium 141 mmol/L (136-145)
[2020-04-17] MEDS: NIFEdipine XL 60 MG TAB PO SCH (08:59)
[2020-04-17] MEDS: Sodium Bicarbonate Tab 325 MG TAB PO SCH ×3 (09:00→20:54)
[2020-04-17] MEDS: Famotidine 20 MG TAB PO SCH (09:00)
[2020-04-17] MEDS: predniSONE 5 MG TAB PO SCH (09:01)
[2020-04-17] MEDS: hydrALAZINE 25 MG TAB PO SCH ×3 (09:02→20:54)
[2020-04-17] MEDS: Ferrous Sulfate 325 MG TAB PO SCH (09:02)
[2020-04-17] MEDS: Calcitriol 0.25 MCG CAP PO SCH (09:02)
[2020-04-17] MEDS: Benzonatate 100 MG CAP PO SCH ×3 (09:02→20:55)
[2020-04-17] MEDS: Enoxaparin Sodium 30 MG/0.3 ML SYRINGE SC SCH (09:03)
[2020-04-17] MEDS: Tacrolimus 1 MG CAP PO SCH ×2 (09:07→20:55)
[2020-04-17] MEDS: Sodium Chloride 0.9% 1,000 ML IV SCH ×2 (09:09→18:09)
[2020-04-17] MEDS: Labetalol 100 MG TAB PO SCH ×2 (09:50→21:02)
[2020-04-17] MEDS: Mycophenolate 250 MG CAP PO SCH ×2 (09:50→20:54)
[2020-04-17] MEDS: Zolpidem Tartrate 5 MG TAB PO PRN (20:54)
[2020-04-18] MEDS: Ondansetron PF 4 MG/2 ML Vial IVP SCH ×3 (05:43→18:06)
[2020-04-18] MEDS: Sodium Chloride 0.9% 1,000 ML IV SCH ×2 (05:45→16:07)
[2020-04-18 05:52] LABS: #Lymphocytes 1.6 thou/uL (1.20-3.40); #Monocytes 0.9 thou/uL (0.11-0.59); #Neutrophils 6.9 thou/uL (1.40-6.50); %Eosinophils 0.4 % (0.0-10.0); %Lymphocytes 16.5 % (21.0-51.0); %Monocytes 9.5 % (0.0-10.0); %Neutrophils 73.6 % (42.0-75.0); Mean Corpuscular HGB CONC 30.9 g/dL (32.0-36.0); Mean Corpuscular Hemoglobin 27.6 pg (27.0-31.0); Mean Corpuscular Volume 89.3 fL (78.0-98.0); Mean Platelet Volume 6.8 fL (7.4-10.4); Platelet Count 340 thou/uL (130-400); RBC Distribution Width 14.6 % (11.5-14.5); Red Blood Cell (RBC) Count 2.92 mill/uL (4.20-5.40); White Blood Cell (WBC) Count 9.4 thou/uL (4.8-10.8)
[2020-04-18 06:15] LABS: Anion Gap 13 mmol/L (10-20); BUN (Urea Nitrogen) 44 mg/dL (9.8-20.1); Calc. Creatinine Clearance 17 mL/min (70-130); Calcium 7.9 mg/dL (7.8-10.44); Carbon Dioxide 18 mmol/L (22-29); Chloride 112 mmol/L (98-107); Glucose 91 mg/dL (70-105); Potassium 4.2 mmol/L (3.5-5.1); Sodium 139 mmol/L (136-145)
[2020-04-18] MEDS: Famotidine 20 MG TAB PO SCH (08:08)
[2020-04-18] MEDS: NIFEdipine XL 60 MG TAB PO SCH (08:08)
[2020-04-18] MEDS: Benzonatate 100 MG CAP PO SCH ×3 (08:09→21:16)
[2020-04-18] MEDS: hydrALAZINE 25 MG TAB PO SCH ×3 (08:09→21:16)
[2020-04-18] MEDS: Sodium Bicarbonate Tab 325 MG TAB PO SCH ×3 (08:09→21:15)
[2020-04-18] MEDS: Ferrous Sulfate 325 MG TAB PO SCH (08:10)
[2020-04-18] MEDS: predniSONE 5 MG TAB PO SCH (08:10)
[2020-04-18] MEDS: Calcitriol 0.25 MCG CAP PO SCH (08:11)
[2020-04-18] MEDS: Enoxaparin Sodium 30 MG/0.3 ML SYRINGE SC SCH (08:11)
[2020-04-18] MEDS: Tacrolimus 1 MG CAP PO SCH ×3 (10:30→21:17)
[2020-04-18] MEDS: Labetalol 100 MG TAB PO SCH ×2 (10:31→21:16)
[2020-04-18] MEDS: Mycophenolate 250 MG CAP PO SCH ×2 (10:32→21:18)
[2020-04-18] MEDS: Senokot S 8.6-50 MG TAB PO PRN (21:16)
[2020-04-19] MEDS: Sodium Chloride 0.9% 1,000 ML IV SCH ×4 (01:41→20:30)
[2020-04-19] MEDS: Ondansetron PF 4 MG/2 ML Vial IVP SCH ×4 (01:41→17:00)
[2020-04-19] MEDS: Zolpidem Tartrate 5 MG TAB PO PRN ×2 (02:10→20:29)
[2020-04-19 06:19] LABS: #Eosinphils 0.1 thou/uL (0.0-0.7); #Lymphocytes 1.7 thou/uL (1.20-3.40); #Monocytes 0.8 thou/uL (0.11-0.59); #Neutrophils 6.8 thou/uL (1.40-6.50); %Basophils 0.2 % (0.0-1.0); %Eosinophils 0.6 % (0.0-10.0); %Lymphocytes 18.4 % (21.0-51.0); %Monocytes 8.4 % (0.0-10.0); %Neutrophils 72.5 % (42.0-75.0); Mean Corpuscular HGB CONC 33.9 g/dL (32.0-36.0); Mean Corpuscular Hemoglobin 30.7 pg (27.0-31.0); Mean Corpuscular Volume 90.4 fL (78.0-98.0); Mean Platelet Volume 6.7 fL (7.4-10.4); Platelet Count 335 thou/uL (130-400); RBC Distribution Width 14.8 % (11.5-14.5); Red Blood Cell (RBC) Count 2.94 mill/uL (4.20-5.40); White Blood Cell (WBC) Count 9.4 thou/uL (4.8-10.8)
[2020-04-19 06:37] LABS: Anion Gap 14 mmol/L (10-20); BUN (Urea Nitrogen) 41 mg/dL (9.8-20.1); Calc. Creatinine Clearance 18 mL/min (70-130); Calcium 7.9 mg/dL (7.8-10.44); Carbon Dioxide 17 mmol/L (22-29); Chloride 111 mmol/L (98-107); Glucose 92 mg/dL (70-105); Potassium 3.4 mmol/L (3.5-5.1); Sodium 139 mmol/L (136-145)
[2020-04-19] MEDS: Sodium Bicarbonate Tab 325 MG TAB PO SCH ×3 (08:02→20:28)
[2020-04-19] MEDS: NIFEdipine XL 60 MG TAB PO SCH (08:02)
[2020-04-19] MEDS: Famotidine 20 MG TAB PO SCH (08:02)
[2020-04-19] MEDS: Benzonatate 100 MG CAP PO SCH ×3 (08:03→20:28)
[2020-04-19] MEDS: predniSONE 5 MG TAB PO SCH (08:03)
[2020-04-19] MEDS: Mycophenolate 250 MG CAP PO SCH ×2 (08:03→20:28)
[2020-04-19] MEDS: Labetalol 100 MG TAB PO SCH ×2 (08:03→20:28)
[2020-04-19] MEDS: hydrALAZINE 25 MG TAB PO SCH ×3 (08:03→20:26)
[2020-04-19] MEDS: Tacrolimus 1 MG CAP PO SCH ×2 (08:04→20:28)
[2020-04-19] MEDS: Calcitriol 0.25 MCG CAP PO SCH (08:04)
[2020-04-19] MEDS: Enoxaparin Sodium 30 MG/0.3 ML SYRINGE SC SCH (08:04)
[2020-04-19] MEDS: Ferrous Sulfate 325 MG TAB PO SCH (08:04)
[2020-04-19] MEDS: Senokot S 8.6-50 MG TAB PO PRN (20:28)
[2020-04-20] MEDS: Ondansetron PF 4 MG/2 ML Vial IVP SCH ×5 (00:26→23:03)
[2020-04-20 05:40] LABS: #Lymphocytes 0.9 thou/uL (1.20-3.40); #Monocytes 0.6 thou/uL (0.11-0.59); #Neutrophils 7.4 thou/uL (1.40-6.50); %Basophils 0.1 % (0.0-1.0); %Eosinophils 0.2 % (0.0-10.0); %Monocytes 7.1 % (0.0-10.0); %Neutrophils 82.5 % (42.0-75.0); Hemoglobin 8.3 g/dL (12.0-16.0); Mean Corpuscular HGB CONC 33.4 g/dL (32.0-36.0); Mean Corpuscular Hemoglobin 30.3 pg (27.0-31.0); Mean Corpuscular Volume 90.8 fL (78.0-98.0); Mean Platelet Volume 6.7 fL (7.4-10.4); Platelet Count 292 thou/uL (130-400); RBC Distribution Width 14.8 % (11.5-14.5); Red Blood Cell (RBC) Count 2.74 mill/uL (4.20-5.40)
[2020-04-20 05:45] LABS: Anion Gap 15 mmol/L (10-20); BUN (Urea Nitrogen) 40 mg/dL (9.8-20.1); Calc. Creatinine Clearance 18 mL/min (70-130); Calcium 7.6 mg/dL (7.8-10.44); Carbon Dioxide 16 mmol/L (22-29); Chloride 114 mmol/L (98-107); Glucose 110 mg/dL (70-105); Potassium 3.7 mmol/L (3.5-5.1); Sodium 141 mmol/L (136-145)
[2020-04-20] MEDS: Sodium Chloride 0.9% 1,000 ML IV SCH (06:37)
[2020-04-20] MEDS: Famotidine 20 MG TAB PO SCH (08:38)
[2020-04-20] MEDS: NIFEdipine XL 60 MG TAB PO SCH (08:38)
[2020-04-20] MEDS: Benzonatate 100 MG CAP PO SCH ×3 (08:38→20:53)
[2020-04-20] MEDS: Sodium Bicarbonate Tab 325 MG TAB PO SCH ×3 (08:38→20:53)
[2020-04-20] MEDS: Calcitriol 0.25 MCG CAP PO SCH (08:39)
[2020-04-20] MEDS: Ferrous Sulfate 325 MG TAB PO SCH (08:39)
[2020-04-20] MEDS: Tacrolimus 1 MG CAP PO SCH ×2 (08:39→20:54)
[2020-04-20] MEDS: predniSONE 5 MG TAB PO SCH (08:39)
[2020-04-20] MEDS: hydrALAZINE 25 MG TAB PO SCH ×3 (08:40→20:53)
[2020-04-20] MEDS: Enoxaparin Sodium 30 MG/0.3 ML SYRINGE SC SCH (08:40)
[2020-04-20] MEDS: Labetalol 100 MG TAB PO SCH ×2 (08:40→20:53)
[2020-04-20] MEDS: Mycophenolate 250 MG CAP PO SCH ×2 (08:40→20:52)
[2020-04-20] MEDS: hydrALAZINE 20 MG/ML VIAL SLOW IVP PRN ×2 (11:13→14:46)
[2020-04-20] MEDS: EPOETIN ALFA-EPBX (ESRD) 4,000 UNIT/ML VIAL SC SCH (14:01)
[2020-04-20] MEDS ORDERED: hydrALAZINE 25 MG TAB PO SCH ×2 (15:00)
[2020-04-21] MEDS: Ondansetron PF 4 MG/2 ML Vial IVP SCH (05:16)
[2020-04-21 05:54] LABS: #Eosinphils 0.1 thou/uL (0.0-0.7); #Lymphocytes 1.4 thou/uL (1.20-3.40); #Monocytes 0.7 thou/uL (0.11-0.59); #Neutrophils 8.2 thou/uL (1.40-6.50); %Basophils 0.3 % (0.0-1.0); %Eosinophils 0.7 % (0.0-10.0); %Lymphocytes 13.3 % (21.0-51.0); %Monocytes 6.6 % (0.0-10.0); %Neutrophils 79.2 % (42.0-75.0); Hemoglobin 9.1 g/dL (12.0-16.0); Mean Corpuscular Hemoglobin 28.3 pg (27.0-31.0); Mean Corpuscular Volume 88.7 fL (78.0-98.0); Mean Platelet Volume 7.2 fL (7.4-10.4); Platelet Count 297 thou/uL (130-400); RBC Distribution Width 14.8 % (11.5-14.5); Red Blood Cell (RBC) Count 3.22 mill/uL (4.20-5.40); White Blood Cell (WBC) Count 10.4 thou/uL (4.8-10.8)
[2020-04-21 06:12] LABS: Anion Gap 17 mmol/L (10-20); BUN (Urea Nitrogen) 47 mg/dL (9.8-20.1); Calc. Creatinine Clearance 16 mL/min (70-130); Calcium 7.9 mg/dL (7.8-10.44); Carbon Dioxide 17 mmol/L (22-29); Chloride 111 mmol/L (98-107); Glucose 94 mg/dL (70-105); Potassium 3.8 mmol/L (3.5-5.1); Sodium 141 mmol/L (136-145)
[2020-04-21] MEDS: Enoxaparin Sodium 30 MG/0.3 ML SYRINGE SC SCH (08:23)
[2020-04-21] MEDS: predniSONE 5 MG TAB PO SCH (08:24)
[2020-04-21] MEDS: NIFEdipine XL 60 MG TAB PO SCH (08:24)
[2020-04-21] MEDS: Benzonatate 100 MG CAP PO SCH (08:24)
[2020-04-21] MEDS: Famotidine 20 MG TAB PO SCH (08:25)
[2020-04-21] MEDS: Sodium Bicarbonate Tab 325 MG TAB PO SCH (08:25)
[2020-04-21] MEDS: Mycophenolate 250 MG CAP PO SCH (08:26)
[2020-04-21] MEDS: Tacrolimus 1 MG CAP PO SCH (08:28)
[2020-04-21] MEDS: Calcitriol 0.25 MCG CAP PO SCH (08:28)
[2020-04-21] MEDS: hydrALAZINE 25 MG TAB PO SCH (08:28)
[2020-04-21] MEDS: Labetalol 100 MG TAB PO SCH (08:29)
[2020-04-21] MEDS: Ferrous Sulfate 325 MG TAB PO SCH (08:29)
[2020-04-21] MEDS: Senokot S 8.6-50 MG TAB PO PRN (08:37)
[2020-04-21 11:22] VITALS: BP 156/90; TEMP 97.8
== END 2020-04-21 12:25 | disposition home or self-care (01) | DRG 699 ==
LOC: ERS 10:44 → T4-B 12:51
PROVIDERS: ADMIT Internal Medicine; ATTEND Internal Medicine
PROC: 0TB03ZX Excision of Right Kidney, Percutaneous Approach, Diagnostic (ICD-10-PCS; principal; 2020-04-09)
PROC: 0W993ZZ Drainage of Right Pleural Cavity, Percutaneous Approach (ICD-10-PCS; 2020-04-16)
DX: N26.9 Renal sclerosis, unspecified (principal); E87.2 Acidosis; J90 Pleural effusion, not elsewhere classified; J81.1 Chronic pulmonary edema; Z94.0 Kidney transplant status; N39.0 Urinary tract infection, site not specified; N12 Tubulo-interstitial nephritis, not specified as acute or chronic; N17.9 Acute kidney failure, unspecified; N25.81 Secondary hyperparathyroidism of renal origin; Z20.822 Contact with and (suspected) exposure to COVID-19; R59.1 Generalized enlarged lymph nodes; I12.9 Hypertensive chronic kidney disease with stage 1 through stage 4 chronic kidney disease, or unspecified chronic kidney disease; I16.0 Hypertensive urgency; N18.31 Chronic kidney disease, stage 3a; G43.909 Migraine, unspecified, not intractable, without status migrainosus; E86.0 Dehydration; R63.6 Underweight; D63.1 Anemia in chronic kidney disease; R06.02 Shortness of breath; K59.00 Constipation, unspecified; Z68.22 Body mass index [BMI] 22.0-22.9, adult; Z79.52 Long term (current) use of systemic steroids; Z79.899 Other long term (current) drug therapy; B94.8 Sequelae of other specified infectious and parasitic diseases
CPT/HCPCS: 36415; 50200; 71045; 71250; 74176; 76770; 76775; 76942; 80048; 80053; 80197; 81001; 82150; 82570; 82945; 83615; 83986; 84155; 84156; 84157; 84300; 85007; 85025; 85027; 85060; 85610; 85730; 87086; 87799; 88329; 89051; 93005; 93306; 96374; 96376; J0360; J1650; J1940; J2270; J2405; J7507; J7512; J7517; P9047; Q0162; Q5105; U0002

== ENCOUNTER 2023-04-30 07:35 | Emergency (ER) | payer BC ==
[2023-04-30 07:58] LABS: #Monocytes 0.8 thou/uL (0.11-0.59); #Neutrophils 13.2 thou/uL (1.40-6.50); %Basophils 0.2 % (0.0-1.0); %Eosinophils 0.2 % (0.0-10.0); %Lymphocytes 1.1 % (21.0-51.0); %Monocytes 5.9 % (0.0-10.0); %Neutrophils 92.3 % (42.0-75.0); Hematocrit 46.3 % (36.0-47.0); Hemoglobin 15.7 g/dL (12.0-16.0); Mean Corpuscular HGB CONC 33.9 g/dL (32.0-36.0); Mean Corpuscular Hemoglobin 29.8 pg (27.0-31.0); Mean Corpuscular Volume 87.9 fl (78.0-98.0); Mean Platelet Volume 10.3 fL (7.4-10.4); Platelet Count 312 10x3/uL (130-400); RBC Distribution Width 13.1 % (11.5-14.5); Red Blood Cell (RBC) Count 5.27 mill/uL (4.20-5.40); White Blood Cell (WBC) Count 14.3 10x3/uL (4.8-10.8)
[2023-04-30] MEDS ORDERED: Glycopyrrolate 0.4 MG/ 2 ML VIAL SLOW IVP SCH (08:00)
[2023-04-30] MEDS ORDERED: GLYCOPYRROLATE/PF 0.2 MG/ML VIAL SLOW IVP SCH (08:15)
[2023-04-30 08:21] LABS: ALT (SGPT) 11 U/L (8-55); AST (SGOT) 15 U/L (5-34); Albumin 4.8 g/dL (3.5-5.0); Alkaline Phosphatase 75 U/L (40-110); Anion Gap 19 mmol/L (10-20); BUN (Urea Nitrogen) 26 mg/dL (9.8-20.1); Bilirubin, Total 1.3 mg/dL (0.2-1.2); Calc. Creatinine Clearance 0 mL/min (70-130); Calcium 9.9 mg/dL (7.8-10.44); Carbon Dioxide 20 mmol/L (22-29); Chloride 105 mmol/L (98-107); Estimated GFR 26; Globulin 2.6 g/dL (2.4-3.5); Glucose 179 mg/dL (70-105); Lipase 10 U/L (8-78); Potassium 4.1 mmol/L (3.5-5.1); Protein, Total 7.4 g/dL (6.0-8.3); Sodium 140 mmol/L (136-145)
[2023-04-30] MEDS ORDERED: Metoclopramide HCl 10 MG (2 mL) VIAL ONE (09:38)
[2023-04-30] MEDS ORDERED: diphenhydrAMINE 50 MG/ML VIAL ONE (09:38)
[2023-04-30 10:37] LABS: Bacteria/HPF None Seen HPF (None Seen); Bilirubin Negative (Negative); Blood, Urine 1+ (Negative); CAUTI Indications for Culture Dysuria,urgency,freq; Clarity Clear (Clear); Glucose, Urine (Dipstick) Normal (Negative); Ketone, Urine Negative (Negative); Leukocyte Negative Leu/uL (Negative); Nitrite Negative (Negative); Protein, Urine (Dipstick) 200 mg/dL (Neg-Trace); Specific Gravity, Urine 1.017 (1.002-1.036); Squamous Epithelial 0-3 HPF (0-3); Urobilinogen Normal mg/dL (Less than 2); WBC/HPF 0-3 HPF (0-3)
[2023-04-30 10:42] LABS: Urine Culture Reflex No No
== END 2023-04-30 10:53 | disposition home or self-care (01) ==
LOC: ERS 07:35
DX: R11.2 Nausea with vomiting, unspecified (principal); R19.7 Diarrhea, unspecified; R51.9 Headache, unspecified; I10 Essential (primary) hypertension; Z94.0 Kidney transplant status
CPT/HCPCS: 80053; 81001; 83690; 85025; 96361; 96374; 96375; J1200; J2765; J3490

== ENCOUNTER 2023-05-25 16:03 | Inpatient (IN) | payer BC ==
[2023-05-25] MEDS ORDERED: Mag-Al 1200 mg/1200 mg/30 ML UDCUP ONE (17:05)
[2023-05-25 18:48] LABS: #Eosinphils 0.2 thou/uL (0.0-0.7); #Monocytes 0.6 thou/uL (0.11-0.59); #Neutrophils 6.4 thou/uL (1.40-6.50); %Basophils 0.2 % (0.0-1.0); %Eosinophils 1.8 % (0.0-10.0); %Monocytes 7.3 % (0.0-10.0); %Neutrophils 78.3 % (42.0-75.0); Hemoglobin 13.2 g/dL (12.0-16.0); Mean Corpuscular Hemoglobin 29.9 pg (27.0-31.0); Mean Corpuscular Volume 90.5 fl (78.0-98.0); Mean Platelet Volume 10.6 fL (7.4-10.4); Platelet Count 278 10x3/uL (130-400); RBC Distribution Width 12.6 % (11.5-14.5); Red Blood Cell (RBC) Count 4.42 mill/uL (4.20-5.40); White Blood Cell (WBC) Count 8.2 10x3/uL (4.8-10.8)
[2023-05-25] MEDS ORDERED: Pantoprazole 40 MG VIAL ONE (18:56)
[2023-05-25] MEDS ORDERED: Ondansetron PF 4 MG/2 ML Vial ONE (18:56)
[2023-05-25 19:07] LABS: ALT (SGPT) 11 U/L (8-55); AST (SGOT) 11 U/L (5-34); Albumin 4.4 g/dL (3.5-5.0); Alkaline Phosphatase 63 U/L (40-110); Anion Gap 16 mmol/L (10-20); BUN (Urea Nitrogen) 27 mg/dL (9.8-20.1); Bilirubin, Total 1.4 mg/dL (0.2-1.2); Calc. Creatinine Clearance 0 mL/min (70-130); Calcium 9.4 mg/dL (7.8-10.44); Carbon Dioxide 22 mmol/L (22-29); Chloride 107 mmol/L (98-107); Estimated GFR 19; Globulin 2.3 g/dL (2.4-3.5); Glucose 96 mg/dL (70-105); Lipase 28 U/L (8-78); Potassium 4.2 mmol/L (3.5-5.1); Protein, Total 6.7 g/dL (6.0-8.3); Sodium 141 mmol/L (136-145)
[2023-05-25 19:08] LABS: Troponin I Less than 0.010 ng/mL (< 0.028)
[2023-05-25] MEDS ORDERED: Ondansetron ODT 4 MG TAB SL PRN (21:00)
[2023-05-25] MEDS ORDERED: Ondansetron PF 4 MG/2 ML Vial IVP PRN (21:00)
[2023-05-25 21:29] LABS: Bacteria/HPF None Seen HPF (None Seen); Bilirubin Negative (Negative); Blood, Urine Trace (Negative); CAUTI Indications for Culture Acute Hematuria; Clarity Clear (Clear); Glucose, Urine (Dipstick) Normal (Negative); Ketone, Urine Negative (Negative); Leukocyte Negative Leu/uL (Negative); Nitrite Negative (Negative); Protein, Urine (Dipstick) 100 mg/dL (Neg-Trace); RBC/HPF 0-3 HPF (0-3); Specific Gravity, Urine 1.021 (1.002-1.036); Squamous Epithelial 0-3 HPF (0-3); Urobilinogen Normal mg/dL (Less than 2); WBC/HPF 0-3 HPF (0-3)
[2023-05-25 21:30] LABS: Urine Culture Reflex No No
[2023-05-25] MEDS ORDERED: Acetaminophen 650 MG Suppository PR PRN (23:09)
[2023-05-25 23:23] VITALS: BMI 25.6
[2023-05-26] MEDS: Tacrolimus 1 MG CAP PO SCH ×4 (00:05→20:45)
[2023-05-26] MEDS: Dextrose 5%-Lactated Ringers 1,000 ML IV SCH (00:05)
[2023-05-26] MEDS: Ondansetron PF 4 MG/2 ML Vial IVP PRN (01:39)
[2023-05-26 05:20] LABS: #Eosinphils 0.2 thou/uL (0.0-0.7); #Monocytes 0.8 thou/uL (0.11-0.59); #Neutrophils 5.2 thou/uL (1.40-6.50); %Basophils 0.4 % (0.0-1.0); %Lymphocytes 11.1 % (21.0-51.0); %Monocytes 10.9 % (0.0-10.0); %Neutrophils 74.5 % (42.0-75.0); Hematocrit 35.9 % (36.0-47.0); Mean Corpuscular HGB CONC 33.4 g/dL (32.0-36.0); Mean Corpuscular Hemoglobin 30.2 pg (27.0-31.0); Mean Corpuscular Volume 90.4 fl (78.0-98.0); Mean Platelet Volume 10.7 fL (7.4-10.4); Platelet Count 254 10x3/uL (130-400); RBC Distribution Width 12.6 % (11.5-14.5); Red Blood Cell (RBC) Count 3.97 mill/uL (4.20-5.40)
[2023-05-26 05:39] LABS: Anion Gap 13 mmol/L (10-20); BUN (Urea Nitrogen) 23 mg/dL (9.8-20.1); Calc. Creatinine Clearance 24 mL/min (70-130); Calcium 8.4 mg/dL (7.8-10.44); Carbon Dioxide 20 mmol/L (22-29); Chloride 110 mmol/L (98-107); Estimated GFR 21; Glucose 115 mg/dL (70-105); Potassium 3.9 mmol/L (3.5-5.1); Sodium 139 mmol/L (136-145)
[2023-05-26] MEDS: predniSONE 5 MG TAB PO SCH (08:44)
[2023-05-26] MEDS: Folic Acid/Vit B Comp W-C PO SCH (08:44)
[2023-05-26] MEDS: hydrALAZINE 25 MG TAB PO SCH (08:45)
[2023-05-26] MEDS: Famotidine/PF 20 mg/2ml Vial SLOW IVP SCH (08:45)
[2023-05-26] MEDS: Acetaminophen 325 MG TAB PO PRN (08:45)
[2023-05-26] MEDS: Famotidine 20 MG TAB PO SCH (08:46)
[2023-05-26] MEDS: Labetalol HCl 100 MG TAB PO SCH (09:49)
[2023-05-26] MEDS: Sodium Chloride 0.9% 1,000 ML IV SCH (09:49)
[2023-05-26] MEDS: Mycophenolate 250 MG CAP PO SCH (09:49)
[2023-05-26] MEDS: Bisacodyl 10 MG SUPP PR SCH (11:33)
[2023-05-26] MEDS: Morphine 2 MG/ML VIAL SLOW IVP SCH (11:33)
[2023-05-26] MEDS: Polyethylene Glycol 3350 17 GM Packet PO SCH (14:21)
[2023-05-26] MEDS: traMADol HCl 50 MG TAB PO PRN (19:00)
[2023-05-26] MEDS: Tacrolimus 0.5 MG CAP PO SCH (20:45)
[2023-05-26] MEDS: SUMAtriptan Succinate 25 MG TAB PO SCH (22:11)
[2023-05-27 05:56] LABS: #Eosinphils 0.1 thou/uL (0.0-0.7); #Monocytes 0.7 thou/uL (0.11-0.59); #Neutrophils 3.9 thou/uL (1.40-6.50); %Basophils 0.3 % (0.0-1.0); %Eosinophils 2.4 % (0.0-10.0); %Lymphocytes 19.8 % (21.0-51.0); %Monocytes 11.8 % (0.0-10.0); %Neutrophils 65.5 % (42.0-75.0); Hematocrit 36.9 % (36.0-47.0); Hemoglobin 11.7 g/dL (12.0-16.0); Mean Corpuscular HGB CONC 31.7 g/dL (32.0-36.0); Mean Corpuscular Hemoglobin 29.2 pg (27.0-31.0); Mean Platelet Volume 10.8 fL (7.4-10.4); Platelet Count 232 10x3/uL (130-400); Red Blood Cell (RBC) Count 4.01 mill/uL (4.20-5.40); White Blood Cell (WBC) Count 5.9 10x3/uL (4.8-10.8)
[2023-05-27 06:12] LABS: ALT (SGPT) 9 U/L (8-55); AST (SGOT) 9 U/L (5-34); Albumin 3.2 g/dL (3.5-5.0); Alkaline Phosphatase 50 U/L (40-110); Anion Gap 13 mmol/L (10-20); BUN (Urea Nitrogen) 17 mg/dL (9.8-20.1); Bilirubin, Total 0.6 mg/dL (0.2-1.2); Calc. Creatinine Clearance 25 mL/min (70-130); Calcium 8.4 mg/dL (7.8-10.44); Carbon Dioxide 18 mmol/L (22-29); Chloride 112 mmol/L (98-107); Estimated GFR 22; Globulin 1.8 g/dL (2.4-3.5); Glucose 91 mg/dL (70-105); Potassium 4.4 mmol/L (3.5-5.1); Sodium 139 mmol/L (136-145)
[2023-05-27] MEDS ORDERED: Polyethylene Glycol 3350 17 GM Packet PO SCH (09:00)
[2023-05-27] MEDS ORDERED: PROPOFOL 40 ML ONE (09:43)
[2023-05-27] MEDS ORDERED: Lidocaine 2% PF 5 ML VIAL ONE (09:43)
[2023-05-27] MEDS ORDERED: Hydrocortisone Sod Succ/PF 100 mg/2 ml Vial ONE (09:56)
[2023-05-27] MEDS ORDERED: Promethazine HCl 25 MG/ML VIAL IM PRN (10:24)
[2023-05-27] MEDS ORDERED: Ondansetron HCl/PF 4 MG/2 ML Vial IVP PRN (10:24)
[2023-05-27] MEDS ORDERED: Morphine Sulfate 2 MG/ML SYRINGE SLOW IVP PRN (10:24)
[2023-05-27] MEDS: GoLYTELY 4,000 ml Bottle PO SCH (12:48)
[2023-05-28 06:29] LABS: #Eosinphils 0.1 thou/uL (0.0-0.7); #Monocytes 0.7 thou/uL (0.11-0.59); #Neutrophils 5.4 thou/uL (1.40-6.50); %Basophils 0.5 % (0.0-1.0); %Eosinophils 0.9 % (0.0-10.0); %Lymphocytes 17.9 % (21.0-51.0); %Monocytes 8.8 % (0.0-10.0); %Neutrophils 71.5 % (42.0-75.0); Hemoglobin 11.4 g/dL (12.0-16.0); Mean Corpuscular HGB CONC 32.6 g/dL (32.0-36.0); Mean Corpuscular Hemoglobin 29.5 pg (27.0-31.0); Mean Corpuscular Volume 90.7 fl (78.0-98.0); Mean Platelet Volume 10.5 fL (7.4-10.4); Platelet Count 239 10x3/uL (130-400); RBC Distribution Width 12.9 % (11.5-14.5); Red Blood Cell (RBC) Count 3.86 mill/uL (4.20-5.40); White Blood Cell (WBC) Count 7.6 10x3/uL (4.8-10.8)
[2023-05-28 06:55] LABS: Anion Gap 13 mmol/L (10-20); BUN (Urea Nitrogen) 15 mg/dL (9.8-20.1); Calc. Creatinine Clearance 29 mL/min (70-130); Calcium 8.2 mg/dL (7.8-10.44); Carbon Dioxide 21 mmol/L (22-29); Chloride 110 mmol/L (98-107); Estimated GFR 27; Glucose 110 mg/dL (70-105); Potassium 3.8 mmol/L (3.5-5.1); Sodium 140 mmol/L (136-145)
[2023-05-29 06:37] LABS: Anion Gap 13 mmol/L (10-20); BUN (Urea Nitrogen) 13 mg/dL (9.8-20.1); Calc. Creatinine Clearance 29 mL/min (70-130); Calcium 8.3 mg/dL (7.8-10.44); Carbon Dioxide 21 mmol/L (22-29); Chloride 110 mmol/L (98-107); Estimated GFR 27; Glucose 88 mg/dL (70-105); Potassium 3.9 mmol/L (3.5-5.1); Sodium 140 mmol/L (136-145)
[2023-05-29] MEDS: Ondansetron ODT 4 MG TAB PO PRN (08:40)
[2023-05-29] MEDS: Sodium Chloride 0.9% 1,000 ML IV SCH (10:22)
[2023-05-29] MEDS: Polyethylene Glycol 3350 17 GM Packet PO SCH (10:26)
[2023-05-29 11:28] VITALS: BP 159/90; TEMP 98
[2023-05-29] MEDS ORDERED: SUMAtriptan Succinate 50 MG TAB PO PRN (11:35)
[2023-05-30 16:15] LABS: Tacrolimus 16.1 ng/mL (2.0-20.0)
== END 2023-05-29 12:55 | disposition home or self-care (01) | DRG 683 ==
LOC: ERS 16:03 → OBSVTOIN 20:45 → SJJU 20:45
PROVIDERS: ADMIT Student in an Organized Health Care Education/Training Program; ATTEND Internal Medicine
PROC: 0DB68ZX Excision of Stomach, Via Natural or Artificial Opening Endoscopic, Diagnostic (ICD-10-PCS; principal; 2023-05-27)
DX: N17.9 Acute kidney failure, unspecified (principal); I50.32 Chronic diastolic (congestive) heart failure; Z94.0 Kidney transplant status; I11.0 Hypertensive heart disease with heart failure; N02.B1 Recurrent and persistent immunoglobulin A nephropathy with glomerular lesion; R80.9 Proteinuria, unspecified; K25.9 Gastric ulcer, unspecified as acute or chronic, without hemorrhage or perforation; K59.09 Other constipation; Z79.899 Other long term (current) drug therapy
CPT/HCPCS: 36415; 36416; 71045; 74176; 76705; 80048; 80053; 80197; 81001; 83690; 83880; 84484; 85025; 87338; 88305; 93005; 93306; C9113; J1720; J2001; J2272; J2405; J2704; J7050; J7507; J7512; J7517; Q0162; S0028

== ENCOUNTER 2024-02-11 01:59 | Inpatient (IN) | payer BC, MEDICARE ==
[2024-02-11 02:50] VITALS: BMI 21.1
[2024-02-11] MEDS: Sodium Chloride 0.9% 1,000 ML IV SCH (03:58)
[2024-02-11] MEDS: Ondansetron PF 4 MG/2 ML Vial IVP PRN (03:58)
[2024-02-11] MEDS ORDERED: Metoclopramide HCl 10 MG (2 mL) VIAL IVP PRN (04:19)
[2024-02-11 05:23] LABS: #Basophils Less than 0.03 10x3/uL (0.0-0.2); %Basophils 0.4 % (0.0-1.0); %Eosinophils 1.1 % (0.0-10.0); %Lymphocytes 16.3 % (21.0-51.0); %Monocytes 12.5 % (0.0-10.0); Hematocrit 32.3 % (36.0-47.0); Hemoglobin 10.5 g/dL (12.0-16.0); Mean Corpuscular HGB CONC 32.5 g/dL (32.0-36.0); Mean Corpuscular Hemoglobin 29.2 pg (27.0-31.0); Mean Platelet Volume 10.3 fL (7.4-10.4); Platelet Count 229 10x3/uL (130-400); RBC Distribution Width 12.7 % (11.5-14.5); Red Blood Cell (RBC) Count 3.59 mill/uL (4.20-5.40)
[2024-02-11 05:45] LABS: Anion Gap 13 mmol/L (10-20); BUN (Urea Nitrogen) 41 mg/dL (9.8-20.1); Calc. Creatinine Clearance 14 mL/min (70-130); Calcium 7.4 mg/dL (7.8-10.44); Carbon Dioxide 18 mmol/L (22-29); Chloride 113 mmol/L (98-107); Estimated GFR 14; Glucose 113 mg/dL (70-105); Potassium 4.1 mmol/L (3.5-5.1); Sodium 140 mmol/L (136-145)
[2024-02-11] MEDS: Mycophenolate 250 MG CAP PO SCH (09:22)
[2024-02-11] MEDS: Tacrolimus 1 MG CAP PO SCH ×2 (09:22→21:21)
[2024-02-11] MEDS: Pantoprazole 40 MG VIAL IVP SCH (09:23)
[2024-02-11] MEDS: Labetalol HCl 100 MG TAB PO SCH (09:23)
[2024-02-11] MEDS: Heparin 5,000 UNITS/ML VIAL SC SCH (09:23)
[2024-02-11] MEDS: predniSONE 5 MG TAB PO SCH (09:23)
[2024-02-11] MEDS: Fluticasone Propionate Nasal Spray 16 gm Bottle NASAL SCH (09:25)
[2024-02-11 11:54] VITALS: BMI 21.1
[2024-02-11] MEDS: Metoclopramide 10 MG/10 ML UDCUP PO SCH (12:14)
[2024-02-11] MEDS: Zolpidem Tartrate 5 MG TAB PO PRN (21:21)
[2024-02-11] MEDS: Magnesium Oxide 400 MG TAB PO SCH (21:22)
[2024-02-11] MEDS: Guaifenesin DM 100-10/5 ML UDCUP PO PRN (21:26)
[2024-02-12 05:18] LABS: #Basophils Less than 0.03 10x3/uL (0.0-0.2); %Basophils 0.4 % (0.0-1.0); %Eosinophils 2.9 % (0.0-10.0); %Lymphocytes 20.4 % (21.0-51.0); %Monocytes 13.2 % (0.0-10.0); %Neutrophils 62.3 % (42.0-75.0); Hematocrit 31.2 % (36.0-47.0); Mean Corpuscular HGB CONC 32.1 g/dL (32.0-36.0); Mean Corpuscular Hemoglobin 29.4 pg (27.0-31.0); Mean Corpuscular Volume 91.8 fL (78.0-98.0); Mean Platelet Volume 10.5 fL (7.4-10.4); Platelet Count 228 10x3/uL (130-400); RBC Distribution Width 12.9 % (11.5-14.5)
[2024-02-12 05:30] LABS: ALT (SGPT) 8 U/L (8-55); AST (SGOT) 10 U/L (5-34); Albumin 2.8 g/dL (3.5-5.0); Alkaline Phosphatase 73 U/L (40-110); Anion Gap 13 mmol/L (10-20); BUN (Urea Nitrogen) 34 mg/dL (9.8-20.1); Bilirubin, Total 0.3 mg/dL (0.2-1.2); Calc. Creatinine Clearance 14 mL/min (70-130); Calcium 7.8 mg/dL (7.8-10.44); Carbon Dioxide 18 mmol/L (22-29); Chloride 113 mmol/L (98-107); Estimated GFR 14; Globulin 1.9 g/dL (2.4-3.5); Glucose 89 mg/dL (70-105); Potassium 3.9 mmol/L (3.5-5.1); Protein, Total 4.7 g/dL (6.0-8.3); Sodium 140 mmol/L (136-145)
[2024-02-12 05:45] LABS: Free T4 (Free Thyroxine) 0.96 ng/dL (0.70-1.48); Thyroid Stimulating Hormone 1.1199 uIU/mL (0.35-4.94)
[2024-02-12 09:33] LABS: Bacteria/HPF None Seen HPF (None Seen); Bilirubin Negative (Negative); Blood, Urine Negative (Negative); Clarity Clear (Clear); Glucose, Urine (Dipstick) Normal (Negative); Ketone, Urine Negative (Negative); Leukocyte Negative Leu/uL (Negative); Nitrite Negative (Negative); Protein, Urine (Dipstick) 70 mg/dL (Neg-Trace); RBC/HPF 0-3 HPF (0-3); Specific Gravity, Urine 1.003 (1.002-1.036); Squamous Epithelial 0-3 HPF (0-3); Urobilinogen Normal mg/dL (Less than 2); WBC/HPF 0-3 HPF (0-3); pH, Urine 6.5 (5.0-9.0)
[2024-02-12] MEDS: Albumin 25% 25 GM (100 mL) BOT IVPB SCH (11:19)
[2024-02-12] MEDS: Sodium Chloride 0.9% 1,000 ML IV SCH (14:14)
[2024-02-12] MEDS: Acetaminophen 325 MG TAB PO PRN (19:20)
[2024-02-12 21:04] LABS: Creatinine, Urine 23.99 mg/dL (47-110)
[2024-02-13] MEDS: Aspirin/APAP/Caffeine Tab (Excedrin Migraine) PO SCH (02:26)
[2024-02-13 04:52] LABS: #Basophils 0.03 10x3/uL (0.0-0.2); %Basophils 0.6 % (0.0-1.0); %Eosinophils 4.1 % (0.0-10.0); %Lymphocytes 16.2 % (21.0-51.0); %Neutrophils 66.2 % (42.0-75.0); Hematocrit 29.7 % (36.0-47.0); Hemoglobin 9.6 g/dL (12.0-16.0); Mean Corpuscular HGB CONC 32.3 g/dL (32.0-36.0); Mean Corpuscular Hemoglobin 29.4 pg (27.0-31.0); Mean Corpuscular Volume 90.8 fL (78.0-98.0); Mean Platelet Volume 10.4 fL (7.4-10.4); Platelet Count 224 10x3/uL (130-400); RBC Distribution Width 12.8 % (11.5-14.5); Red Blood Cell (RBC) Count 3.27 mill/uL (4.20-5.40)
[2024-02-13 05:10] LABS: ALT (SGPT) 26 U/L (8-55); AST (SGOT) 21 U/L (5-34); Albumin 3.8 g/dL (3.5-5.0); Alkaline Phosphatase 58 U/L (40-110); Anion Gap 16 mmol/L (10-20); BUN (Urea Nitrogen) 28 mg/dL (9.8-20.1); Bilirubin, Total 0.5 mg/dL (0.2-1.2); Calc. Creatinine Clearance 15 mL/min (70-130); Carbon Dioxide 17 mmol/L (22-29); Chloride 113 mmol/L (98-107); Estimated GFR 15; Globulin 1.6 g/dL (2.4-3.5); Glucose 87 mg/dL (70-105); Potassium 3.8 mmol/L (3.5-5.1); Protein, Total 5.4 g/dL (6.0-8.3); Sodium 142 mmol/L (136-145)
[2024-02-13] MEDS: Sodium Bicarbonate 150 MEQ in Dextrose 5% in Water 1,000 ML IV SCH ×3 (10:52→16:24)
[2024-02-13] MEDS ORDERED: Ipratropium/Albuterol 3 ML NEB NEB PRN (11:20)
[2024-02-13] MEDS: oxyCODONE 5 MG TAB PO PRN (15:00)
[2024-02-14 05:48] LABS: #Basophils 0.03 10x3/uL (0.0-0.2); %Basophils 0.5 % (0.0-1.0); %Eosinophils 5.5 % (0.0-10.0); %Lymphocytes 10.2 % (21.0-51.0); %Monocytes 11.2 % (0.0-10.0); %Neutrophils 71.8 % (42.0-75.0); Hematocrit 29.7 % (36.0-47.0); Hemoglobin 9.9 g/dL (12.0-16.0); Mean Corpuscular HGB CONC 33.3 g/dL (32.0-36.0); Mean Corpuscular Hemoglobin 29.7 pg (27.0-31.0); Mean Corpuscular Volume 89.2 fL (78.0-98.0); Mean Platelet Volume 10.2 fL (7.4-10.4); Platelet Count 219 10x3/uL (130-400); RBC Distribution Width 12.8 % (11.5-14.5); Red Blood Cell (RBC) Count 3.33 mill/uL (4.20-5.40)
[2024-02-14 05:59] LABS: ALT (SGPT) 16 U/L (8-55); AST (SGOT) 10 U/L (5-34); Albumin 3.6 g/dL (3.5-5.0); Alkaline Phosphatase 56 U/L (40-110); Anion Gap 15 mmol/L (10-20); BUN (Urea Nitrogen) 25 mg/dL (9.8-20.1); Bilirubin, Total 0.7 mg/dL (0.2-1.2); Calc. Creatinine Clearance 14 mL/min (70-130); Carbon Dioxide 23 mmol/L (22-29); Chloride 105 mmol/L (98-107); Estimated GFR 14; Globulin 1.7 g/dL (2.4-3.5); Glucose 96 mg/dL (70-105); Potassium 3.2 mmol/L (3.5-5.1); Protein, Total 5.3 g/dL (6.0-8.3); Sodium 140 mmol/L (136-145)
[2024-02-14] MEDS ORDERED: Potassium Chloride 20 MEQ TAB PO SCH (08:30)
[2024-02-14] MEDS: Potassium Bicarbonate/Cit Ac 20 MEQ TAB PO SCH (08:39)
[2024-02-14 08:57] LABS: Critical Call Chemistry NUR.DB4; Phosphorus 3.1 mg/dL (2.3-4.7)
[2024-02-14] MEDS: FLU (Fluarix Triv) TS24-25(6MOS UP)/PF 45 MCG/0.5 ML Syringe IM ONE (10:29)
[2024-02-14] MEDS: Magnesium 2 GM/50 ML(in water) 2 GM in Premix 1 BAG IVPB SCH ×2 (10:29→17:03)
[2024-02-14 16:13] LABS: Iron 21 ug/dL (50-170); Iron Binding Capacity, Total 159 mcg/dL (265-497)
[2024-02-15 04:59] LABS: #Basophils Less than 0.03 10x3/uL (0.0-0.2); %Basophils 0.4 % (0.0-1.0); %Lymphocytes 13.9 % (21.0-51.0); %Monocytes 14.8 % (0.0-10.0); %Neutrophils 62.9 % (42.0-75.0); Hematocrit 30.9 % (36.0-47.0); Hemoglobin 10.2 g/dL (12.0-16.0); Mean Corpuscular Hemoglobin 29.4 pg (27.0-31.0); Mean Platelet Volume 10.1 fL (7.4-10.4); Platelet Count 231 10x3/uL (130-400); RBC Distribution Width 12.7 % (11.5-14.5); Red Blood Cell (RBC) Count 3.47 mill/uL (4.20-5.40)
[2024-02-15 05:21] LABS: ALT (SGPT) 16 U/L (8-55); AST (SGOT) 11 U/L (5-34); Albumin 3.6 g/dL (3.5-5.0); Alkaline Phosphatase 61 U/L (40-110); Anion Gap 17 mmol/L (10-20); BUN (Urea Nitrogen) 27 mg/dL (9.8-20.1); Bilirubin, Total 0.7 mg/dL (0.2-1.2); Calc. Creatinine Clearance 13 mL/min (70-130); Calcium 8.7 mg/dL (7.8-10.44); Carbon Dioxide 25 mmol/L (22-29); Chloride 102 mmol/L (98-107); Estimated GFR 13; Glucose 93 mg/dL (70-105); Protein, Total 5.6 g/dL (6.0-8.3); Sodium 140 mmol/L (136-145)
[2024-02-15] MEDS: Sodium Ferric Gluconate 250 MG in Sodium Chloride 0.9% 250 ML 250 ML IVPB SCH (11:05)
[2024-02-16 05:51] LABS: #Basophils 0.03 10x3/uL (0.0-0.2); %Basophils 0.6 % (0.0-1.0); %Eosinophils 7.1 % (0.0-10.0); %Lymphocytes 17.2 % (21.0-51.0); %Monocytes 14.9 % (0.0-10.0); %Neutrophils 59.4 % (42.0-75.0); Hematocrit 32.5 % (36.0-47.0); Hemoglobin 10.6 g/dL (12.0-16.0); Mean Corpuscular HGB CONC 32.6 g/dL (32.0-36.0); Mean Corpuscular Hemoglobin 29.3 pg (27.0-31.0); Mean Corpuscular Volume 89.8 fL (78.0-98.0); Mean Platelet Volume 10.4 fL (7.4-10.4); Platelet Count 260 10x3/uL (130-400); RBC Distribution Width 12.8 % (11.5-14.5); Red Blood Cell (RBC) Count 3.62 mill/uL (4.20-5.40)
[2024-02-16 06:06] LABS: BUN (Urea Nitrogen) 33 mg/dL (9.8-20.1); Calc. Creatinine Clearance 13 mL/min (70-130); Calcium 8.8 mg/dL (7.8-10.44); Carbon Dioxide 23 mmol/L (22-29); Estimated GFR 13; Glucose 93 mg/dL (70-105)
[2024-02-16 06:48] LABS: Anion Gap 19 mmol/L (10-20); Chloride 104 mmol/L (98-107); Sodium 140 mmol/L (136-145)
[2024-02-16] MEDS: Albumin 25% 25 GM (100 mL) BOT IVPB SCH (11:43)
[2024-02-16 17:15] LABS: Tacrolimus 13.2 ng/mL (2.0-20.0)
[2024-02-16 21:36] LABS: CMV DNA-PCR Test Negative (Negative)
[2024-02-17 04:52] LABS: #Basophils 0.03 10x3/uL (0.0-0.2); %Basophils 0.7 % (0.0-1.0); %Eosinophils 4.9 % (0.0-10.0); %Lymphocytes 18.6 % (21.0-51.0); %Monocytes 15.9 % (0.0-10.0); %Neutrophils 59.7 % (42.0-75.0); Hematocrit 30.2 % (36.0-47.0); Hemoglobin 9.7 g/dL (12.0-16.0); Mean Corpuscular HGB CONC 32.1 g/dL (32.0-36.0); Mean Corpuscular Hemoglobin 28.8 pg (27.0-31.0); Mean Corpuscular Volume 89.6 fL (78.0-98.0); Mean Platelet Volume 10.7 fL (7.4-10.4); Platelet Count 248 10x3/uL (130-400); RBC Distribution Width 12.7 % (11.5-14.5); Red Blood Cell (RBC) Count 3.37 mill/uL (4.20-5.40)
[2024-02-17 05:14] LABS: Anion Gap 20 mmol/L (10-20); BUN (Urea Nitrogen) 34 mg/dL (9.8-20.1); Calc. Creatinine Clearance 13 mL/min (70-130); Calcium 9.4 mg/dL (7.8-10.44); Carbon Dioxide 21 mmol/L (22-29); Chloride 104 mmol/L (98-107); Estimated GFR 13; Glucose 85 mg/dL (70-105); Potassium 3.9 mmol/L (3.5-5.1); Sodium 141 mmol/L (136-145)
[2024-02-17] MEDS: Tacrolimus 1 MG CAP PO SCH (08:18)
[2024-02-17] MEDS: Albumin 25% 25 GM (100 mL) BOT IVPB SCH (11:27)
[2024-02-17 15:14] LABS: Fungitell Beta (1,3) D-Glucan Negative (.)
[2024-02-17] MEDS: Acetaminophen 500 MG TAB PO SCH (20:40)
[2024-02-17] MEDS: Loratadine 10 MG TAB PO SCH (20:41)
[2024-02-18 06:54] LABS: #Basophils Less than 0.03 10x3/uL (0.0-0.2); %Basophils 0.4 % (0.0-1.0); %Eosinophils 5.4 % (0.0-10.0); %Lymphocytes 19.4 % (21.0-51.0); %Monocytes 12.7 % (0.0-10.0); %Neutrophils 61.5 % (42.0-75.0); Hematocrit 28.5 % (36.0-47.0); Hemoglobin 9.2 g/dL (12.0-16.0); Mean Corpuscular HGB CONC 32.3 g/dL (32.0-36.0); Mean Corpuscular Hemoglobin 29.2 pg (27.0-31.0); Mean Corpuscular Volume 90.5 fL (78.0-98.0); Mean Platelet Volume 10.2 fL (7.4-10.4); Platelet Count 228 10x3/uL (130-400); RBC Distribution Width 12.9 % (11.5-14.5); Red Blood Cell (RBC) Count 3.15 mill/uL (4.20-5.40)
[2024-02-18 07:22] LABS: Anion Gap 21 mmol/L (10-20); BUN (Urea Nitrogen) 40 mg/dL (9.8-20.1); Calc. Creatinine Clearance 13 mL/min (70-130); Calcium 10.1 mg/dL (7.8-10.44); Carbon Dioxide 19 mmol/L (22-29); Chloride 103 mmol/L (98-107); Estimated GFR 13; Glucose 87 mg/dL (70-105); Potassium 3.9 mmol/L (3.5-5.1); Sodium 139 mmol/L (136-145)
[2024-02-18 10:21] LABS: INR-International Normal Ratio 1.2; Prothrombin Time 14.8 sec (12.0-14.7)
[2024-02-18 10:42] LABS: PTT 167.8 sec (22.9-36.1)
[2024-02-18] MEDS: NIFEdipine XL 30 MG ER.TAB PO SCH (11:20)
[2024-02-18] MEDS: HYDROcodone/Acetaminophen 7.5/325 mg Tablet PO PRN (17:06)
[2024-02-18] MEDS: Docusate 100 MG CAP PO SCH (18:11)
[2024-02-18] MEDS: cloNIDine 0.1 MG TAB PO SCH (21:17)
[2024-02-18] MEDS: Loratadine 10 MG TAB PO PRN (21:48)
[2024-02-19 06:23] LABS: #Basophils Less than 0.03 10x3/uL (0.0-0.2); %Basophils 0.2 % (0.0-1.0); %Eosinophils 3.3 % (0.0-10.0); %Lymphocytes 10.6 % (21.0-51.0); %Monocytes 12.7 % (0.0-10.0); %Neutrophils 72.6 % (42.0-75.0); Hematocrit 29.9 % (36.0-47.0); Hemoglobin 9.7 g/dL (12.0-16.0); Mean Corpuscular HGB CONC 32.4 g/dL (32.0-36.0); Mean Corpuscular Hemoglobin 29.2 pg (27.0-31.0); Mean Corpuscular Volume 90.1 fL (78.0-98.0); Mean Platelet Volume 10.5 fL (7.4-10.4); Platelet Count 232 10x3/uL (130-400); RBC Distribution Width 12.9 % (11.5-14.5); Red Blood Cell (RBC) Count 3.32 mill/uL (4.20-5.40)
[2024-02-19 06:41] LABS: ALT (SGPT) 10 U/L (8-55); AST (SGOT) 12 U/L (5-34); Albumin 5.3 g/dL (3.5-5.0); Alkaline Phosphatase 50 U/L (40-110); Anion Gap 21 mmol/L (10-20); BUN (Urea Nitrogen) 45 mg/dL (9.8-20.1); Bilirubin, Total 0.7 mg/dL (0.2-1.2); Calc. Creatinine Clearance 12 mL/min (70-130); Calcium 9.9 mg/dL (7.8-10.44); Carbon Dioxide 19 mmol/L (22-29); Chloride 103 mmol/L (98-107); Estimated GFR 12; Globulin 1.5 g/dL (2.4-3.5); Glucose 87 mg/dL (70-105); Potassium 4.1 mmol/L (3.5-5.1); Protein, Total 6.8 g/dL (6.0-8.3); Sodium 139 mmol/L (136-145)
[2024-02-19] MEDS ORDERED: Polyethylene Glycol 3350 17 GM Packet PO PRN (08:37)
[2024-02-19] MEDS ORDERED: Loratadine 10 MG TAB PO PRN (10:45)
[2024-02-19] MEDS: Sodium Chloride 0.9% 1,000 ML IV SCH (11:06)
[2024-02-19] MEDS: Sertraline 100 MG TAB PO SCH (11:06)
[2024-02-19 12:23] LABS: Bilirubin Negative (Negative); Blood, Urine 1+ (Negative); Clarity Clear (Clear); Glucose, Urine (Dipstick) Normal (Negative); Ketone, Urine Negative (Negative); Leukocyte Negative Leu/uL (Negative); Nitrite Negative (Negative); Protein, Urine (Dipstick) 600 mg/dL (Neg-Trace); RBC/HPF 0-3 HPF (0-3); Specific Gravity, Urine 1.016 (1.002-1.036); Squamous Epithelial 0-3 HPF (0-3); Urobilinogen Normal mg/dL (Less than 2); WBC/HPF 0-3 HPF (0-3); pH, Urine 6.5 (5.0-9.0)
[2024-02-19 12:35] LABS: Bacteria/HPF Rare-Few HPF (None Seen)
[2024-02-19 13:08] LABS: Creatinine, Urine 85.24 mg/dL (47-110)
[2024-02-19] MEDS ORDERED: Lidocaine 1% PF 5 ML VIAL ONE (13:27)
[2024-02-19] MEDS ORDERED: fentaNYL 50 mcg/mL 1 mL Vial ONE (13:28)
[2024-02-19] MEDS ORDERED: Lidocaine 1% w/Epinephrine 1:100K 20 ML VIAL ONE (13:28)
[2024-02-19] MEDS ORDERED: Midazolam HCl 2 mg/2 ml Vial ONE (13:28)
[2024-02-19] MEDS ORDERED: Sodium Bicarbonate 2.5 MEQ/5 ML SDV ONE (13:28)
[2024-02-19] MEDS: Docusate 100 MG CAP PO PRN (20:08)
[2024-02-20 00:42] VITALS: BP 125/74; TEMP 98.4
[2024-02-20] MEDS ORDERED: Sertraline 100 MG TAB PO SCH (09:00)
== END 2024-02-20 01:36 | disposition short-term general hospital (02) | DRG 698 ==
LOC: T4-B 02:17
PROVIDERS: ADMIT Internal Medicine; ATTEND Internal Medicine
PROC: 30233J0 Transfusion of Autologous Serum Albumin into Peripheral Vein, Percutaneous Approach (ICD-10-PCS; principal; 2024-02-11)
PROC: 0TB13ZX Excision of Left Kidney, Percutaneous Approach, Diagnostic (ICD-10-PCS; 2024-02-19)
DX: T86.19 Other complication of kidney transplant (principal); I50.33 Acute on chronic diastolic (congestive) heart failure; J96.01 Acute respiratory failure with hypoxia; N18.6 End stage renal disease; N17.9 Acute kidney failure, unspecified; I13.0 Hypertensive heart and chronic kidney disease with heart failure and stage 1 through stage 4 chronic kidney disease, or unspecified chronic kidney disease; E87.20 Acidosis, unspecified; N02.B1 Recurrent and persistent immunoglobulin A nephropathy with glomerular lesion; D84.821 Immunodeficiency due to drugs; K31.84 Gastroparesis; E87.8 Other disorders of electrolyte and fluid balance, not elsewhere classified; R80.9 Proteinuria, unspecified; R63.4 Abnormal weight loss; E83.42 Hypomagnesemia; F32.A Depression, unspecified; Z79.899 Other long term (current) drug therapy; Z86.16 Personal history of COVID-19; Z68.21 Body mass index [BMI] 21.0-21.9, adult
CPT/HCPCS: 36415; 50200; 71045; 71046; 71250; 77012; 80048; 80053; 80197; 81001; 82570; 82728; 83540; 83550; 83615; 83735; 83880; 84100; 84145; 84156; 84300; 84439; 84443; 85025; 85610; 85730; 86141; 87449; 87497; 87633; 88329; 93005; 93306; 96360; 99152; 99153; J1644; J2250; J2405; J2470; J2916; J3010; J3475; J7030; J7050; J7070; J7507; J7512; J7517; P9047

== ENCOUNTER 2024-04-21 08:11 | Outpatient (CLI) | payer BC | END 2024-04-21 08:12 | disposition home or self-care (01) | LOC: NM 08:11 | PROVIDERS: ATTEND Physician Assistant Medical | DX: K31.84 Gastroparesis (principal); R63.4 Abnormal weight loss; K30 Functional dyspepsia | CPT/HCPCS: 78264; A9541 ==

== ENCOUNTER 2025-01-03 10:36 | Outpatient (CLI) | payer BC, MEDICARE ==
[2025-01-03 12:04] LABS: #Basophils 0.09 10x3/uL (0.0-0.2); #Eosinophils 1.20 10x3/uL (0.0-0.7); #Monocytes 1.07 10x3/uL (0.11-0.59); #Neutrophils 10.49 10x3/uL (1.40-6.50); %Basophils 0.6 % (0.0-1.0); %Eosinophils 8.3 % (0.0-10.0); %Lymphocytes 10.4 % (21.0-51.0); %Monocytes 7.4 % (0.0-10.0); %Neutrophils 72.7 % (42.0-75.0); Hematocrit 31.9 % (36.0-47.0); Hemoglobin 10.3 g/dL (12.0-16.0); Mean Corpuscular Hemoglobin 30.5 pg (27.0-31.0); Mean Corpuscular Volume 94.4 fL (78.0-98.0); Platelet Count 339 10x3/uL (130-400); Red Blood Cell (RBC) Count 3.38 mill/uL (4.20-5.40); White Blood Cell (WBC) Count 14.44 10x3/uL (4.8-10.8)
[2025-01-03 12:15] LABS: Anion Gap 27 mmol/L (10-20); BUN (Urea Nitrogen) 83 mg/dL (9.8-20.1); Calc. Creatinine Clearance 0 mL/min (70-130); Calcium 7.8 mg/dL (7.8-10.44); Carbon Dioxide 18 mmol/L (22-29); Chloride 100 mmol/L (98-107); Glucose 85 mg/dL (70-105); Potassium 5.3 mmol/L (3.5-5.1); Sodium 140 mmol/L (136-145)
[2025-01-03 12:25] LABS: INR-International Normal Ratio 1.1; PTT 33.6 sec (22.9-36.1); Prothrombin Time 14.7 sec (12.0-14.7)
== END 2025-01-03 10:37 | disposition home or self-care (01) ==
LOC: LABBT 10:36
PROVIDERS: ATTEND Surgery
DX: Z01.818 Encounter for other preprocedural examination (principal); N18.6 End stage renal disease
CPT/HCPCS: 71046; 80048; 85025; 85610; 85730; 93005; 93010

== ENCOUNTER 2025-01-09 07:15 | Day surgery (SDC) | payer BC, MEDICARE ==
[2025-01-03 11:28] VITALS: BMI 19.2
[2025-01-09] MEDS ORDERED: Ondansetron PF 4 MG/2 ML Vial ONE (10:13)
[2025-01-09] MEDS ORDERED: Lidocaine 1% PF 5 ML VIAL ONE (10:13)
[2025-01-09] MEDS ORDERED: fentaNYL PF 100 MCG/2 ML SYRINGE ONE ×2 (10:13→13:12)
[2025-01-09] MEDS ORDERED: Lidocaine 1% (PF) 30 ML VIAL ONE (10:21)
[2025-01-09] MEDS ORDERED: Heparin 10,000 UNITS/ 10 ML VIAL ONE ×2 (10:21→11:08)
[2025-01-09] MEDS ORDERED: Heparin 5,000 UNITS/ML VIAL ONE (10:23)
[2025-01-09] MEDS ORDERED: CEFAZOLIN 1 GM VIAL ONE (10:47)
[2025-01-09] MEDS ORDERED: PHENYLEPHRINE-NS 100 MCG/ML 10 ML SYRINGE ONE (11:00)
[2025-01-09] MEDS ORDERED: PROPOFOL 200 MG/20 ML VIAL ONE (11:00)
[2025-01-09] MEDS ORDERED: Ketorolac Tromethamine 30 MG (1 mL) VIAL ONE (13:31)
[2025-01-09] MEDS ORDERED: HYDROmorphone 0.5 MG/0.5 ML SYRINGE ONE (13:38)
[2025-01-09] MEDS ORDERED: HYDROcodone/Acetaminophen 5/325 mg Tablet ONE (15:16)
== END 2025-01-09 16:20 | disposition home or self-care (01) ==
LOC: SDC 07:15
PROVIDERS: ATTEND Surgery
PROC: 03160ZD Bypass Left Axillary Artery to Upper Arm Vein, Open Approach (ICD-10-PCS; principal; 2025-01-09)
DX: I12.0 Hypertensive chronic kidney disease with stage 5 chronic kidney disease or end stage renal disease (principal); N18.6 End stage renal disease; Z88.8 Allergy status to other drugs, medicaments and biological substances; Z91.048 Other nonmedicinal substance allergy status
CPT/HCPCS: A6258; C1713; J0690; J1100; J1171; J1644; J1885; J2003; J2250; J2405; J2704; J2720; J3010; J3373